=== PATIENT | female | born 1955 | race Caucasian/White ===

== ENCOUNTER 2024-08-17 13:52 | Inpatient (IN) | payer MEDICARE, OTHER, SELFPAY ==
[2024-08-17] VITALS (8 sets, daily range): BP systolic 146–189; BP diastolic 65–134; PULSE 77–124; RESP 16–20; TEMP 36.6–37.2; O2SAT 93–97; BMI 30.5; BMI 31.8
--- NOTE | 2024-08-17 14:14 | XR_ITS ---
WS: [id number] Exam: XR pelvis min 3V [id number] Date/Time of Exam: 08/17/2024 2:35 PM Reason For Exam: fall No pelvic fracture. The SI joints and hips are intact. Unremarkable soft tissues. XR/XR pelvis min 3V [id number] IMPRESSION: 1. No acute traumatic finding in the pelvis.
--- NOTE | 2024-08-17 14:22 | ECG_ITS ---
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
[2024-08-17] MEDS: sodium chloride 0.9% 1,000 ML 999 ML IV (14:48)
--- NOTE | 2024-08-17 15:22 | PC.PHAR ---
Pt unable to verify her medications. Phoned [facility] [phone] and Rowena Simmons for medication list with last fill dates and day supply. Pt states she has not taken any medications in 3 or 4 days.
[2024-08-17 15:29] LABS: Basophils # 0.1 10^3/uL (0.0-0.1); Basophils % 0.4 %; Eosinophils # 0.3 10^3/uL (0.0-0.8); Eosinophils % 1.8 %; Hematocrit 39.1 % (36-47); Lymphocytes # 1.3 10^3/uL (0.8-4.8); Lymphocytes % 8.5 %; Mean Corpuscular HGB Conc 32.2 g/dL (30-55); Mean Corpuscular Hemoglobin 29.1 pg (27-33); Mean Corpuscular Volume 90.3 fl (85-98); Mean Platelet Volume 11.9 fL (7.4-10.4); Monocytes # 1.3 10^3/uL (0.2-0.9); Monocytes % 9.1 %; Neutrophils # 11.61 10^3/uL (1.8-7.7); Neutrophils % 79.4 %; Nucleated Red Blood Cells % 0 %; Platelet Count 229 10^3/cmm (157-399); Red Blood Count 4.33 10^6/uL (3.85-5.65); Red Cell Distribution Width 12.8 % (12.1-15.1); White Blood Count 14.65 10^3/uL (3.29-11.43)
[2024-08-17 15:48] LABS: Alanine Aminotransferase 70 U/L (0-33); Albumin Level 3.6 g/dL (3.5-5.2); Alkaline Phosphatase 110 U/L (35-105); Anion Gap 15.6 (5-19); Aspartate Amino Transferase 77 U/L (0-32); Blood Urea Nitrogen 27 mg/dL (8-23); Calcium 9.5 mg/dL (8.5-10.5); Carbon Dioxide 24 mmol/L (22-29); Chloride 110 mmol/L (98-107); Creatinine Clr Calc Pharmacy 79.4844; Globulin 2.7 g/dL (1.3-4.6); Glomerular Filtration Rate 122.7 mL/min (90-130); Glucose 102 mg/dL (65-115); Osmolality Calculated 307 mOsm/kg (285-295); Potassium 3.6 mmol/L (3.5-5.1); Sodium 146 mmol/L (136-145); Total Bilirubin 0.8 mg/dL (0.15-1.2); Total Protein 6.3 g/dL (6.6-8.7)
[2024-08-17 15:49] LABS: Creatine Phosphokinase 811 U/L (26-192)
[2024-08-17 15:53] LABS: Bilirubin Urine Negative (Negative); Blood Urine Negative (Negative); Glucose Urine UA Negative (Normal); Ketones Urine 2+ (Negative); Leukocyte Esterase Urine Trace (Negative); Nitrate Urine Negative (Negative); Protein Urine 1+ (Negative); Urine Appearance Clear (CLEAR); Urine Color Dark Yellow (Yellow)
[2024-08-17 15:58] LABS: Add Urine Microscopic? YES; Bacteria Urine None Seen /hpf; Hyaline Casts Urine 1.21 /lpf; RBC Urine 0-2 /hpf (0-2); Squamous Epithelial Cell Urine 0-5 /hpf (0-5); WBC Urine 0-5 /hpf (0-5)
[2024-08-17 16:17] LABS: Add Urine Culture? No; Specific Gravity, Urine 1.033 (1.005-1.030)
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
--- NOTE | 2024-08-17 17:31 | CTR_ITS ---
PROCEDURE INFORMATION: Exam: CT Head Without Contrast Exam date and time: 08/17/2024 5:45 PM Age: 69 years old Clinical indication: Stroke-like symptoms; Altered mental status/memory loss TECHNIQUE: Imaging protocol: Computed tomography of the head without contrast. Radiation optimization: All CT scans at this facility use at least one of these dose optimization techniques: automated exposure control; mA and/or kV adjustment per patient size (includes targeted exams where dose is matched to clinical indication); or iterative reconstruction. Other technique: STROKE PROTOCOL was implemented. COMPARISON: CT angio headneck* [id number] 08/17/2024 5:45 PM RADIATION DOSE METRICS: Total DLP (mGy-cm): 1108.5 FINDINGS: Brain: No acute intracranial hemorrhage. No edema. No mass effect. There are small ill-defined hypodense areas in the bilateral periventricular white matter suggestive of chronic small vessel ischemic changes. Cerebral ventricles: No hydrocephalus. The ventricles are mildly prominent in size in keeping with brain atrophy. Paranasal sinuses: Visualized sinuses are unremarkable. No fluid levels. Mastoid air cells: No mastoid effusion. Bones: Unremarkable. No acute fracture. Soft tissues: Unremarkable. CT/CT head wo con* [id number] IMPRESSION: No CT evidence of acute intracranial hemorrhage, mass or acute infarction. ASSESSMENT: ASPECTS ([place] Stroke Program Early CT Score) is 10.
--- NOTE | 2024-08-17 17:31 | USR_ITS ---
PROCEDURE INFORMATION: Exam: US Duplex Artery or Vein of the Abdominal and/or Reproductive Organs, Limited Liver Exam date and time: 08/17/2024 9:52 PM Age: 69 years old Clinical indication: Condition or disease; Other: Transaminitis TECHNIQUE: Imaging protocol: Real-time duplex ultrasound scan of the arterial or venous flow with color Doppler flow and spectral waveform analysis with image documentation. Limited Duplex exam focused on the liver and portal venous system. Duplex exam was performed to evaluate for vascular conditions. COMPARISON: No relevant prior studies available. FINDINGS: Portal venous: The portal vein is patent with hepatopetal flow. Spectral waveform demonstrates normal respiratory phasicity. PROCEDURE INFORMATION: Exam: US Abdomen; Limited Exam date and time: 08/17/2024 9:52 PM Age: 69 years old Clinical indication: Condition or disease; Other: Transaminitis TECHNIQUE: Imaging protocol: Real time ultrasound of the abdomen with image documentation. Limited exam focused on the region of clinical interest. COMPARISON: No relevant prior studies available. FINDINGS: Liver: Diffuse hepatic steatosis. Gallbladder: Cholelithiasis. Gallbladder wall measures 2 mm. Positive sonographic Estevez's sign. Biliary ducts: Common bile duct measures 5 mm. Pancreas: Limited evaluation of the pancreas due to overlying bowel gas. Right kidney: The right kidney measures 10.8 cm. No hydronephrosis. Possible vascular mass in the mid right kidney measuring approximately 3.5 cm. US/US liver [id number] IMPRESSION: Unremarkable duplex of the portal vein. IMPRESSION: 1. Cholelithiasis with positive sonographic Estevez's sign, concerning for acute cholecystitis. 2. Possible right renal mass measuring 3.5 cm. Recommend correlation with nonemergent contrast-enhanced multiphase CT. 3. Diffuse hepatic steatosis.
--- NOTE | 2024-08-17 17:31 | CTR_ITS ---
PROCEDURE INFORMATION: Exam: CTA Head With Contrast, Arteriography Exam date and time: 08/17/2024 5:45 PM Age: 69 years old Clinical indication: Weakness; Additional info: Stroke TECHNIQUE: Imaging protocol: Computed tomographic angiography of the head with contrast. Exam focused on the arteries. 3D rendering (Not supervised by radiologist): MIP and/or 3D reconstructed images were created by the technologist. Radiation optimization: All CT scans at this facility use at least one of these dose optimization techniques: automated exposure control; mA and/or kV adjustment per patient size (includes targeted exams where dose is matched to clinical indication); or iterative reconstruction. Contrast material: OMNIPAQUE 350; Contrast volume: 100 ml; Contrast route: INTRAVENOUS (IV); COMPARISON: CT head wo con* [id number] 08/17/2024 5:45 PM RADIATION DOSE METRICS: Total DLP (mGy-cm): 432 FINDINGS: ANTERIOR CIRCULATION: Right internal carotid artery: Intracranial segment is patent with no significant stenosis. No aneurysm. Right middle cerebral artery: No occlusion or significant stenosis. No aneurysm. Right anterior cerebral artery: No occlusion or significant stenosis. No aneurysm. Left internal carotid artery: Intracranial segment is patent with no significant stenosis. No aneurysm. Left middle cerebral artery: No occlusion or significant stenosis. No aneurysm. Left anterior cerebral artery: No occlusion or significant stenosis. No aneurysm. POSTERIOR CIRCULATION: Right vertebral artery: No occlusion or significant stenosis. No aneurysm. Left vertebral artery: No occlusion or significant stenosis. No aneurysm. Basilar artery: No occlusion or significant stenosis. No aneurysm. The artery is of small caliber as expected with origin of bilateral posterior cerebral arteries. Right posterior cerebral artery: No occlusion or significant stenosis. No aneurysm. There is developmental variant of origin of the artery from the anterior circulation. Left posterior cerebral artery: No occlusion or significant stenosis. No aneurysm. There is developmental variant of origin of the artery from the anterior circulation. Brain: No definite mass, mass effect, or midline shift. Cerebral ventricles: No ventriculomegaly. Bones/joints: Unremarkable. No acute fracture. Soft tissues: Unremarkable. PROCEDURE INFORMATION: Exam: CTA Neck With Contrast Exam date and time: 08/17/2024 5:45 PM Age: 69 years old Clinical indication: Weakness; Additional info: Stroke TECHNIQUE: Imaging protocol: Computed tomographic angiography of the neck with contrast. Exam focused on the cervical segments of the vasculature. 3D rendering (Not supervised by radiologist): MIP and/or 3D reconstructed images were created by the technologist. Radiation optimization: All CT scans at this facility use at least one of these dose optimization techniques: automated exposure control; mA and/or kV adjustment per patient size (includes targeted exams where dose is matched to clinical indication); or iterative reconstruction. Contrast material: OMNIPAQUE 350; Contrast volume: 100 ml; Contrast route: INTRAVENOUS (IV); COMPARISON: CT head wo con* [id number] 08/17/2024 5:45 PM RADIATION DOSE METRICS: Total DLP (mGy-cm): 432 FINDINGS: Right common carotid artery: No significant stenosis. No dissection or occlusion. Right internal carotid artery: Extracranial segment is patent with no significant stenosis. No dissection or occlusion. Right external carotid artery: No occlusion or significant stenosis. Left common carotid artery: No significant stenosis. No dissection or occlusion. Left internal carotid artery: Extracranial segment is patent with no significant stenosis. No dissection or occlusion. Left external carotid artery: No occlusion or significant stenosis. Right vertebral artery: No significant stenosis. No dissection or occlusion. Left vertebral artery: Occluded at the origin with minor flow reconstituting at C5 level and subsequent occlusion in the upper neck. The flow at the craniocervical junction is probably supplied from the right vertebral artery. Soft tissues: No significant soft tissue swelling. Bones/joints: No acute fracture. CT/CT angio headneck* [id number] IMPRESSION: No large vessel stenosis or occlusion. IMPRESSION: No carotid stenosis. 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 REFERENCES: NASCET CRITERIA. The degree of stenosis in the cervical segment of the internal carotid artery is based on NASCET criteria. Normal is no stenosis. Mild is less than 50% stenosis. Moderate is 50-69% stenosis. Severe is 70% to 99% stenosis. Total occlusion is no detectable patent lumen.
[2024-08-17] MEDS: iohexol 350 mg/mL 500 mL Btl (per mL) IV (17:51)
[2024-08-17 18:23] LABS: Thyroid Stimulating Hormone 2.29 uIU/mL (0.27-4.20)
[2024-08-17 18:26] LABS: Alcohol Level < 10 mg/dL (0-10)
[2024-08-17] MEDS: cefTRIAXone 1,000 mg SDV 1000 MG IVP (18:28)
[2024-08-17] MEDS: enoxaparin 40 mg/0.4 mL Syringe SUBCUT (18:28)
[2024-08-17 18:44] LABS: Amphetamines Screen Urine Negative (Negative); Barbiturates Screen Urine Negative (Negative); Benzodiazepines Screen Urine Negative (Negative); Cocaine Screen Urine Negative (Negative); Opiate Screen Urine Negative (Negative); PCP Screen Urine Negative (Negative); THC Screen Urine Positive (Negative)
[2024-08-17 18:46] LABS: Ammonia 23 umol/L (11-51)
[2024-08-17] MEDS: sodium chloride 0.45% 1,000 ML 75 ML IV (18:57)
--- NOTE | 2024-08-17 19:05 | W.ED.FALL ---
HPI - Fall General: Chief Complaint: Fall Stated Complaint: fall Time Seen by Provider: 08/17/24 13:52 History of Present Illness: This patient is a 69-year-old white female who presents to the emergency department for evaluation after a fall. The history obtained is suspect. Patient does seem to be somewhat confused. She was brought in by EMS and furthermore we do not have any medical history on her in the computer since she has not been seen here before. Patient states that she was diagnosed with either spinal stenosis or spondylitis of the spine on June 27 of this year. Since then she has developed weakness in both legs along with frequent falling. She states she was trying to get into the shower 5 days ago and developed severe lower back pain and had a lower herself to the ground. She did not actually fall. She states she was too weak to get up and she laid there since then. She states she is scheduled for surgery on her spine on September [address] Rivera in [place]. Related Data Home Medications ?Medication ?Instructions ?Recorded ?Confirmed acetaminophen 300 mg-codeine 30 mg 1 tab PO Q8H PRN Pain 08/17/24 08/17/24 tablet cyclobenzaprine 10 mg tablet 10 mg PO BID PRN Spasms 08/17/24 08/17/24 fluoxetine 20 mg capsule (Prozac) 20 mg PO DAILY 08/17/24 08/17/24 hydrochlorothiazide 25 mg tablet 25 mg PO QAM 08/17/24 08/17/24 levothyroxine 50 mcg tablet 50 mcg PO QAM 08/17/24 08/17/24 metoprolol succinate 25 mg 25 mg PO DAILY 08/17/24 08/17/24 tablet,extended release 24 hr rosuvastatin 20 mg tablet 20 mg PO DAILY 08/17/24 08/17/24 triamcinolone acetonide 0.1 % 1 applic topical BID PRN Skin 08/17/24 08/17/24 topical cream Irritation Allergies Allergy/AdvReac Type Severity Reaction Status Date / Time levofloxacin (From Levaquin) Allergy Unknown Verified 08/17/24 14:07 morphine Allergy Unknown Verified 08/17/24 14:07 Review of Systems General: Reports: 10 or more systems reviewed and unremarkable except in HPI and below Musc: Reports: back pain Physical Exam Narrative: EXAM NARRATIVE: Patient was covered in the urine and some feces. Const: COMMON NORMALS: no acute distress, patient oriented x3 and no limitations GENERAL APPEARANCE: cooperative HENMT: COMMON NORMALS: normocephalic, atraumatic, Normal nasal mucous membranes and turbinates present, moist oral mucous membranes and oropharynx normal HEAD & SCALP: normal to inspection, normocephalic and atraumatic FACE & SINUS: normal facial exam NOSE: Normal nasal mucous membranes and turbinates present Eye: COMMON NORMALS: Equal, round and reactive pupils present, EOMs intact bilaterally and conjunctivae normal GENERAL EYE: appearance normal, both eyes and all related structures CONJUNCTIVA: Yes conjunctivae normal PUPIL: Yes Equal, round and reactive pupils present Neck/C-Spine: COMMON NORMALS: supple and no JVD Chest: COMMONS NORMALS: normal inspection of the chest Resp: COMMON NORMALS: normal respiratory effort and clear to auscultation bilaterally AUSCULTATION: clear to auscultation bilaterally Cardio: COMMON NORMALS: no JVD, regular rate, regular rhythm, No gallops present (Cardio), No murmurs present (Cardio) and No rub (Cardio) RATE: regular rate RHYTHM: regular rhythm GI: COMMON NORMALS: Normal to inspection, nondistended, normoactive bowel sounds present, Soft to palpation and non-tender AUSCULTATION: Yes normoactive bowel sounds PALPATION: Yes Soft to palpation Back/Pelvis: GENERAL BACK: Yes tenderness Extremity: COMMON NORMALS: normal to inspection Neuro: COMMON NORMALS: patient oriented x3 and CN's II-XII intact bilaterally Psych: COMMON NORMALS: mental status grossly normal, Normal thought process present and cooperative THOUGHT PROCESS: Normal thought process present Skin: COMMON NORMALS: no rashes or lesions noted, turgor normal and no jaundice GENERAL SKIN EXAM: no rashes or lesions noted and turgor normal Course Vital Signs: Vital signs: Vital Signs Temperature 98.1 F 08/17/24 13:54 Pulse Rate 94 08/17/24 18:30 Respiratory Rate 20 H 08/17/24 18:30 Blood Pressure 166/80 08/17/24 18:30 Pulse Oximetry 97 08/17/24 18:30 Oxygen Delivery Me thod Room Air 08/17/24 18:30 MDM - Fall Medical Decision Making EKG revealed normal sinus rhythm with no ST segment abnormalities. X-rays of the pelvis were read by the radiologist as normal. CBC revealed a white blood cell count of 14.7. CMP revealed a sodium of 146, BUN 27 creatinine 0.5. Urinalysis reveals 2+ ketones. Total CK was 811. I discussed this case with Dr. Bonilla, hospitalist. She did come down and evaluated the patient. She had added head CT as well as CTA of the head and neck to rule out possible CVA due to the patient's confusion. Those tests were read by the radiologist as normal. Urine drug screen was positive for THC. Lactic acid 1.0. TSH 2.29. Ammonia level was 23. Dr. Bonilla did admit the patient. Patient will be transferred to the floor shortly. She is stable. Lab Data 08/17/24 15:10 08/17/24 15:10 Radiology Impressions Pelvis X-Ray 08/17/24 14:14 IMPRESSION: 1. No acute traumatic finding in the pelvis. Head CT 08/17/24 17:31 IMPRESSION: No CT evidence of acute intracranial hemorrhage, mass or acute infarction. ASSESSMENT: ASPECTS ([place] Stroke Program Early CT Score) is 10. ADDENDUM: 08/17/24 1194 THIS REPORT CONTAINS FINDINGS THAT MAY BE CRITICAL TO PATIENT CARE. The findings were verbally communicated via telephone conference with Dr. Rodriguez at 6:54 PM CDT on 08/17/2024. The findings were acknowledged and understood. Head/Neck CTA 08/17/24 17:31 IMPRESSION: No large vessel stenosis or occlusion. IMPRESSION: No carotid stenosis. 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 REFERENCES: NASCET CRITERIA. The degree of stenosis in the cervical segment of the internal carotid artery is based on NASCET criteria. Normal is no stenosis. Mild is less than 50% stenosis. Moderate is 50-69% stenosis. Severe is 70% to 99% stenosis. Total occlusion is no detectable patent lumen. Laboratory Results WBC 14.65 10^3/uL (3.29-11.43) H 08/17/24 15:10 RBC 4.33 10^6/uL (3.85-5.65) 08/17/24 15:10 Hgb 12.60 g/dL (11.27-16.99) 08/17/24 15:10 Hct 39.1 % (36-47) 08/17/24 15:10 MCV 90.3 fl (85-98) 08/17/24 15:10 MCH 29.1 pg (27-33) 08/17/24 15:10 MCHC 32.2 g/dL (30-55) 08/17/24 15:10 RDW 12.8 % (12.1-15.1) 08/17/24 15:10 Plt Count 229 10^3/cmm (157-399) 08/17/24 15:10 MPV 11.9 fL (7.4-10.4) H 08/17/24 15:10 Neut % (Auto) 79.4 % 08/17/24 15:10 Lymph % (Auto) 8.5 % 08/17/24 15:10 [place] % (Auto) 9.1 % 08/17/24 15:10 Eos % (Auto) 1.8 % 08/17/24 15:10 Baso % (Auto) 0.4 % 08/17/24 15:10 Neut # (Auto) 11.61 10^3/uL (1.8-7.7) H 08/17/24 15:10 Lymph # (Auto) 1.3 10^3/uL (0.8-4.8) 08/17/24 15:10 [place] # (Auto) 1.3 10^3/uL (0.2-0.9) H 08/17/24 15:10 Eos # (Auto) 0.3 10^3/uL (0.0-0.8) 08/17/24 15:10 Baso # (Auto) 0.1 10^3/uL (0.0-0.1) 08/17/24 15:10 Nucleated RBC % (auto) 0 % 08/17/24 15:10 Nucleated RBCs # 0.0 /100WBC 08/17/24 15:10 Sodium 146 mmol/L (136-145) H 08/17/24 15:10 Potassium 3.6 mmol/L (3.5-5.1) 08/17/24 15:10 Chloride 110 mmol/L (98-107) H 08/17/24 15:10 Carbon Dioxide 24 mmol/L (22-29) 08/17/24 15:10 Anion Gap 15.6 (5-19) 08/17/24 15:10 BUN 27 mg/dL (8-23) H 08/17/24 15:10 Creatinine 0.5 mg/dL (0.5-0.9) 08/17/24 15:10 GFR Calculation 122.7 mL/min (90-130) 08/17/24 15:10 Glucose 102 mg/dL (65-115) 08/17/24 15:10 Calculated Osmolality 307 mOsm/kg (285-295) H 08/17/24 15:10 Lactic Acid 1.0 mmol/L (0.5-2.2) 08/17/24 18:07 Calcium 9.5 mg/dL (8.5-10.5) 08/17/24 15:10 Total Bilirubin 0.8 mg/dL (0.15-1.2) 08/17/24 15:10 AST 77 U/L (0-32) H 08/17/24 15:10 ALT 70 U/L (0-33) H 08/17/24 15:10 Alkaline Phosphatase 110 U/L (35-105) H 08/17/24 15:10 Ammonia 23 umol/L (11-51) 08/17/24 18:25 Creatine Kinase 811 U/L (26-192) H* 08/17/24 15:10 Total Protein 6.3 g/dL (6.6-8.7) L 08/17/24 15:10 Albumin 3.6 g/dL (3.5-5.2) 08/17/24 15:10 Globulin 2.7 g/dL (1.3-4.6) 08/17/24 15:10 TSH 2.29 uIU/mL (0.27-4.20) 08/17/24 15:10 Urine Color Dark yellow (Yellow) A 08/17/24 15:46 Urine Appearance Clear (CLEAR) 08/17/24 15:46 Urine pH 6.0 (5-7) 08/17/24 15:46 Ur Specific [place] 1.033 (1.005-1.030) H 08/17/24 15:46 Urine Protein 1+ (Negative) A 08/17/24 15:46 Urine Glucose (UA) Negative (Normal) 08/17/24 15:46 Urine Ketones 2+ (Negative) H 08/17/24 15:46 Urine Blood Negative (Negative) 08/17/24 15:46 Urine Nitrate Negative (Negative) 08/17/24 15:46 Urine Bilirubin Negative (Negative) 08/17/24 15:46 Urine Urobilinogen 1.0 mg/dL (Negative) 08/17/24 15:46 Ur Leukocyte Esterase Trace (Negative) A 08/17/24 15:46 Urine RBC 0-2 /hpf (0-2) 08/17/24 15:46 Urine WBC 0-5 /hpf (0-5) 08/17/24 15:46 Ur Squamous Epith Cells 0-5 /hpf (0-5) 08/17/24 15:46 Amorphous Sediment Not Reportable 08/17/24 15:46 Urine Bacteria None seen /hpf (NONE) 08/17/24 15:46 Hyaline Casts 1.21 /lpf 08/17/24 15:46 Urine Opiates Screen Negative ng/mL (Negative) 08/17/24 15:40 Ur Barbiturates Screen Negative ng/mL (Negative) 08/17/24 15:40 Ur Phencyclidine Scrn Negative ng/mL (Negative) 08/17/24 15:40 Ur Amphetamines Screen Negative ng/mL (Negative) 08/17/24 15:40 U Benzodiazepines Scrn Negative ng/mL (Negative) 08/17/24 15:40 Urine Cocaine Screen Negative ng/mL (Negative) 08/17/24 15:40 U Marijuana (THC) Screen Positive ng/mL (Negative) H 08/17/24 15:40 Ethyl Alcohol < 10 mg/dL (0-10) 08/17/24 15:10 All radiology interpretation(s) finalized by discharge Discharge Plan Discharge Admit Provider: Milana Bonilla Condition: Stable Coding Level of Care Code ED Traffic Control Signaler for Juana Edwards
[2024-08-17 21:31] LABS: Hepatitis A Antibody IgM Non-Reactive (Nonreactive); Hepatitis B Core AB, Total Non-Reactive (Nonreactive); Hepatitis B Surface AB 40.7 (11.5-1000); Hepatitis B Surface Antigen Non-Reactive (Nonreactive); Hepatitis C Virus Antibody Non-Reactive (Nonreactive)
[2024-08-17] MEDS: atorvastatin 40 mg Tablet PO (22:39)
--- NOTE | 2024-08-18 01:24 | PC.NURSE ---
hospitalist dr melissa ordered patient micatin topical cream, the med is a formulary medication and is unable to be given until pharmacy is open at 0600.
--- NOTE | 2024-08-18 01:31 | PC.NURSE ---
patient up to floor at 2000 from ER. patient was found at her home in the floor and had been there for atleast 5 days, patient was covered in feces, urine, has multiple bug bites on the front of her body, has scabs on both knees and elbows and on her right foot. patient has excoriation under the folds of her abdomen, under her breast bilateral, in the folds on her back. patient came to the floor with a Ramirez catheter, and daughter is at bedside. patient is alert and oriented but says she is seeing bugs crawling on the [place]. this nurse contacted hospitalist Dr melissa and she stated that we need to watch it and if it gets any worse to contact her again. patient has normal saline at 75ml/hr, iv line dry and intact. this nurse turn on the bed alarm due to patient being a fall risk. will continue to monitor patients visual disturbances and assess for increased hallucinations.
[2024-08-18 04:00] VITALS: BP 152/79; PULSE 91; RESP 20; TEMP 36.3; O2SAT 90
[2024-08-18] MEDS: levothyroxine 50 mcg Tablet PO (05:25)
[2024-08-18 05:57] LABS: Basophils % 0.3 %; Eosinophils # 0.6 10^3/uL (0.0-0.8); Eosinophils % 4.8 %; Hematocrit 37.7 % (36-47); Lymphocytes # 1.5 10^3/uL (0.8-4.8); Lymphocytes % 12.6 %; Mean Corpuscular HGB Conc 32.4 g/dL (30-55); Mean Corpuscular Hemoglobin 29.4 pg (27-33); Mean Corpuscular Volume 90.8 fl (85-98); Mean Platelet Volume 11.8 fL (7.4-10.4); Monocytes # 1.1 10^3/uL (0.2-0.9); Monocytes % 8.7 %; Neutrophils # 8.77 10^3/uL (1.8-7.7); Neutrophils % 72.8 %; Nucleated Red Blood Cells % 0 %; Platelet Count 213 10^3/cmm (157-399); Red Blood Count 4.15 10^6/uL (3.85-5.65); Red Cell Distribution Width 12.9 % (12.1-15.1); White Blood Count 12.06 10^3/uL (3.29-11.43)
[2024-08-18 06:23] LABS: Alanine Aminotransferase 60 U/L (0-33); Albumin Level 3.3 g/dL (3.5-5.2); Alkaline Phosphatase 120 U/L (35-105); Aspartate Amino Transferase 55 U/L (0-32); Blood Urea Nitrogen 19 mg/dL (8-23); Calcium 9.1 mg/dL (8.5-10.5); Carbon Dioxide 23 mmol/L (22-29); Chloride 107 mmol/L (98-107); Creatinine Clr Calc Pharmacy 81.7976; Globulin 2.6 g/dL (1.3-4.6); Glomerular Filtration Rate 158.7 mL/min (90-130); Glucose 96 mg/dL (65-115); Magnesium 2.1 mg/dL (1.7-2.3); Osmolality Calculated 298 mOsm/kg (285-295); Sodium 143 mmol/L (136-145); Total Bilirubin 0.6 mg/dL (0.15-1.2); Total Protein 5.9 g/dL (6.6-8.7)
[2024-08-18 07:22] VITALS: BP 147/75; PULSE 82; RESP 16; TEMP 36.7; O2SAT 93
[2024-08-18 08:00] VITALS: BP 147/75; PULSE 82; RESP 16; TEMP 36.7
[2024-08-18] MEDS: metoprolol succinate ER (24 HR) 25 mg Tablet PO (08:19)
[2024-08-18] MEDS: sodium chloride 0.45% 1,000 ML 75 ML IV ×2 (08:23→20:01)
--- NOTE | 2024-08-18 10:06 | MRR_ITS ---
PROCEDURE INFORMATION: Exam: MR Lumbar Spine Without and With Contrast Exam date and time: 08/18/2024 12:55 PM Age: 69 years old Clinical indication: Severe low back pain weakness in extremities , concern for cauda equina; Additional info: Assess for cauda equina, nerve compression, known lumbar stenosis, uanble to walk x 5 days, assess for TECHNIQUE: Imaging protocol: Magnetic resonance imaging of the lumbar spine without and with contrast. Contrast material: MULTI TEVIN; Contrast volume: 20 ml; Contrast route: INTRAVENOUS (IV); COMPARISON: CR XR pelvis min 3V [id number] 08/17/2024 2:28 PM FINDINGS: Bones/joints: Lumbar curvature is unremarkable. There is slight spondylolisthesis at L3-L4 and L4-L5 otherwise alignment is unremarkable. There is an acute compression fracture involving the superior endplate of L4 with approximately 30% loss of vertebral body height and slight retropulsion of the superior margin. Remainder of the vertebral bodies are intact. Spinal cord: Normal termination of the conus medullaris. Nerve roots of the cauda equina are unremarkable. T12-L1: Degenerative disc and endplate changes with annular disc bulge and endplate osteophytic lipping indenting the anterior thecal sac. No significant spinal stenosis. L1-L2: No significant disc bulge or herniation. No severe spinal canal stenosis. No significant neural foraminal narrowing. L2-L3: No significant disc bulge or herniation. No severe spinal canal stenosis. No significant neural foraminal narrowing. L3-L4: Diffuse annular disc bulge with ligamentum flavum thickening and facet arthrosis superimposed on mild retropulsion of the superior endplate resulting in severe stenosis of the central canal with constriction of the thecal sac. There is mild acquired foraminal stenosis at this level. L4-L5: Diffuse annular disc bulge with ligamentum flavum thickening facet arthrosis resulting in severe stenosis of the central canal with constriction of the thecal sac.. There is mild acquired foraminal stenosis bilaterally. L5-S1: Posterior degenerative disc space narrowing with mild annular disc bulge indenting the anterior thecal sac imparting borderline stenosis of the central canal and mild acquired foraminal stenosis bilaterally. Soft tissues: Unremarkable. MR/MR lumbar spine wo/w con [id number] IMPRESSION: 1. Acute compression fracture L4 with mild retropulsion and approximately 30% loss of vertebral body height. 2. Severe degenerative spinal stenosis L3-L4 and L4-L5 with constriction of the thecal sac.
--- NOTE | 2024-08-18 11:12 | PC.CHAP ---
Pastoral Care Encounter/Spiritual Assessment Type of Contact [] Declined assembler latches and springs visit [] Patient/Family/Request visit [] Outpatient visit [] Follow-up visit [] Physician referral [] Code/Alert [x] Routine visit [] Staff referral [] Actively dying [] Patient sleeping [] Family support [] [] Out of room [] Palliative care [] [] Receiving care in room [] Pre-surgical visit [] Trauma [] Long length of stay [] ICU visit [] Other: Relational/Emotional Strength [x] Patient feels connected with others/family/visitors/staff [] Distress [] Loneliness/isolation [] Abandonment Spirituality of Patient [x] Person of [place] [] Attends Evangelical of their [place] [x] Believes in Prayer [] Reads Bible or Holiness materials [] There are Spiritual issues to be addressed [employer] Interventions [x] Prayer [x] Active listening [] Non-anxious presence [x] Spiritual/emotional support [] Crisis/trauma care [] Spiritual counseling [] Bereavement support [] Provided bereavement packet [] Provided Bible/devotional materials [] Provided toy/stuffed animal, coloring book to patient or family member [] Provided Communion [] Anointing/[facility] [] Salvation [x] Completed spiritual assessment [] Other: Impact on Illness or Injury [] Angry [] Fearful [] Anxious [] Often cries [] Exhaustion [] Unable to work [] Unable to attend yarsanism [] Unable to walk/stand [] Unable to read [] Unable to drive [] Unable to eat/drink [] Unable to sleep [] Unable to be with family [] Patient intubated [] Other: Summary Time spent with patient 5 min
[2024-08-18 12:01] VITALS: BP 131/85; PULSE 111; RESP 16; TEMP 36.7; O2SAT 92
[2024-08-18] MEDS: piperacillin-tazobactam 3.375 GM in sodium chloride 0.9% (plus) 50 ML IV ×2 (12:28→18:22)
[2024-08-18] MEDS: gadobenate dimeglumine 20 mL vial IV (13:27)
--- NOTE | 2024-08-18 14:03 | PC.NURSE ---
notified Melissa in [facility] to bring Ensure Pluse per Dr. Bonilla's Message to Nurse in orders. Patient is to have ensure plus tonight to prepare patient for HIDA in am. Dietary will bring them up with dinner.
[2024-08-18] MEDS: lidocaine 1% 5 ML in potassium chloride premix 100 ML 26.25 ML IV (14:24)
--- NOTE | 2024-08-18 15:23 | PM.CONSULT ---
Providers/Reason For Consult Consulting Physician/Specialty*: Catherine Parks DO/general surgeon Reason for Consult*: Question of acute cholecystitis due to ultrasound findings Requesting Physician: Milana Bonilla MD Attending Physician: Milana Bonilla MD Primary Care Provider: Sunshine Dooley APN History of Present Illness History of Present Illness Lynne Garcia is a 69 year old female with recent fall and altered mental status. Her initial complaints are bilateral upper extremity pain, left hip pain, and flushing. I was consulted for right upper quadrant focused ultrasound findings of cholelithiasis, with a questionable positive Estevez sign and mildly elevated LFTs, within normal bilirubin. She has baseline hypertension and hyperthyroid. Upon questioning this afternoon, the patient had an episode of acute diverticulitis in 2011, at which time she was given IV antibiotics in the emergency department and discharged on oral antibiotics. Her last colonoscopy was approximately 30 years ago. She has a family history of colon cancer. She complains of left upper quadrant, left flank, and left lower quadrant abdominal pain that has been going on for about 5 days. She has not eaten much in the last few weeks, although her memory is limited at this time. She does not have abdominal pain after eating fatty meals. She does not have nausea or vomiting. She does have an unexplained leukocytosis. Although, she reportedly takes steroids intermittently as she thinks that she needs them for certain ailments. Review of Systems Const: Reports: body aches, change in appetite and other (confirms weakness); Denies: fever(s) or chills Card: Reports: chest pain and palpitations GI: Reports: abdominal pain; Denies: nausea, vomiting, constipation, bloating, change in bowel habits or hematochezia : Reports: flank pain Musc: Reports: extremity pain and muscle weakness Medications/Allergies Home Medications ?Medication ?Instructions ?Recorded ?Confirmed ?Last Taken ?Type acetaminophen 300 mg-codeine 30 mg 1 tab PO Q8H PRN Pain 08/17/24 08/17/24 Unknown History tablet cyclobenzaprine 10 mg tablet 10 mg PO BID PRN Spasms 08/17/24 08/17/24 Unknown History fluoxetine 20 mg capsule (Prozac) 20 mg PO DAILY 08/17/24 08/17/24 Unknown History hydrochlorothiazide 25 mg tablet 25 mg PO QAM 08/17/24 08/17/24 Unknown History levothyroxine 50 mcg tablet 50 mcg PO QAM 08/17/24 08/17/24 Unknown History metoprolol succinate 25 mg 25 mg PO DAILY 08/17/24 08/17/24 Unknown History tablet,extended release 24 hr rosuvastatin 20 mg tablet 20 mg PO DAILY 08/17/24 08/17/24 Unknown History triamcinolone acetonide 0.1 % 1 applic topical BID PRN Skin 08/17/24 08/17/24 Unknown History topical cream Irritation Allergies Allergy/AdvReac Type Severity Reaction Status Date / Time levofloxacin (From [facility]) Allergy Unknown Verified 08/17/24 14:07 lisinopril Allergy ALGY-Swell Verified 08/17/24 21:14 Lip/Tongue/Throat morphine Allergy Unknown Verified 08/17/24 14:07 Current Medications Generic Name Dose Route Start Last Admin Trade Name Freq PRN Reason Stop Dose Admin Atorvastatin Calcium 40 mg 08/17/24 21:00 08/17/24 22:39 Atorvastatin 40 Mg Tablet PO 40 mg BEDTIME HUNTER Administration Enoxaparin Sodium 40 mg 08/17/24 17:45 08/17/24 18:28 Enoxaparin 40 Mg/0.4 Ml Syringe SUBCUT 40 mg Q24H HUNTER Administration Sodium Chloride 1,000 mls @ 75 mls/hr 08/17/24 17:45 08/18/24 08:23 Sodium Chloride 0.45% IV 75 mls/hr .[id number] HUNTER Administration Piperacillin Sod/Tazobactam 50 mls @ 12.5 mls/hr 08/18/24 11:15 08/18/24 12:28 Sod 3.375 gm/ Sodium Chloride IV 12.5 mls/hr Q8H HUNTER Administration Protocol Lidocaine HCl 5 ml/ Potassium 105 mls @ 26.25 mls/hr 08/18/24 12:27 08/18/24 14:24 Chloride IV 08/18/24 16:26 26.25 mls/hr ONCE ONE Administration Levothyroxine Sodium 50 mcg 08/18/24 06:00 08/18/24 05:25 Levothyroxine 50 Mcg Tablet PO 50 mcg QAM HUNTER Administration Metoprolol Succinate 25 mg 08/18/24 09:00 08/18/24 08:19 Metoprolol Succinate Er (24 Hr) 25 Mg Tablet PO 25 mg DAILY HUNTER Administration Vitals/I&O/Wt Last Vital Signs Temp 98.0 F 08/18/24 12:01 Pulse 111 H 08/18/24 12:01 Resp 16 08/18/24 12:01 BP 131/85 08/18/24 12:01 Pulse Ox 92 08/18/24 12:01 O2 Del Method Room Air 08/18/24 12:01 08/18/24 08/18/24 08/18/24 06:59 14:59 22:59 Intake Total 1450 / 1450 Output Total 450 / 450 Balance -450 / 550 1450 / 1450 Weight last 48 hrs Weight 213 lb Weight 209 lb 4.8 oz Weight 201 lb Physical Exam Const: COMMON NORMALS: no acute distress and patient oriented x3 GENERAL APPEARANCE: comfortable HENMT: COMMON NORMALS: normocephalic and atraumatic HEAD & SCALP: normocephalic and atraumatic Chest: COMMONS NORMALS: normal inspection of the chest Resp: COMMON NORMALS: normal respiratory effort and No use of accessory muscles GI: COMMON NORMALS: Normal to inspection, nondistended, normoactive bowel sounds present OTHER: No rebound tenderness or rigidity. Focally tender to palpation in the left upper quadrant, left lower quadrant, and suprapubic region. Equivocally tender to palpation in the right upper quadrant of the abdomen Extremity: NARRATIVE EXTREMITY EXAM: Erythema/flushing of the face and bilateral upper extremities. Erythema/irritation in the abdominal folds. Neuro: COMMON NORMALS: patient oriented x3 Data 08/18/24 05:31 08/18/24 05:31 Micro: Microbiology 08/17/24 18:13 Blood Culture - Preliminary Blood SPECIMEN COLLECTED 08/17/24 18:07 Blood Culture - Preliminary Blood SPECIMEN COLLECTED US: My impression: FINDINGS: Liver: Diffuse hepatic steatosis. Gallbladder: Cholelithiasis. Gallbladder wall measures 2 mm. Positive sonographic Estevez's sign. Biliary ducts: Common bile duct measures 5 mm. Pancreas: Limited evaluation of the pancreas due to overlying bowel gas. Right kidney: The right kidney measures 10.8 cm. No hydronephrosis. Possible vascular mass in the mid right kidney measuring approximately 3.5 cm. IMPRESSION: Unremarkable duplex of the portal vein. IMPRESSION: 1. Cholelithiasis with positive sonographic Estevez's sign, concerning for acute cholecystitis. 2. Possible right renal mass measuring 3.5 cm. Recommend correlation with nonemergent contrast-enhanced multiphase CT. 3. Diffuse hepatic steatosis. A&P Assessment and plan (1) Abdominal pain of unknown cause: - I reviewed the right upper quadrant ultrasound, there is in fact cholelithiasis with some of the stones measuring up to approximately 1 cm in diameter. The gallbladder wall is not thickened at 2 mm, and there is no pericholecystic fluid. In the absence of an explanation for the leukocytosis and the questionable positive ultrasonic Estevez's sign, I recommend getting a HIDA scan to rule out acute cholecystitis. --The patient does have altered mental status, but the bilirubin is normal and there are no other signs of a possible cholangitis, the common bile duct is not dilated per ultrasound. There are other possible explanations for altered mental status in this patient. It would however be prudent to trend the bilirubin and liver enzymes, as well as a daily CBC. -- The patient has a history of an apparently uncomplicated acute diverticulitis. Physical exam findings of left-sided tenderness to palpation and reported left-sided abdominal pain are consistent with possible acute diverticulitis. Recommend CT abdomen and pelvis with IV contrast. May start IV antibiotics empirically. -- I will follow this patient closely and continue to see this patient on a daily basis. The patient and her daughter were involved in the decision-making process. --I also discussed the patient and plan of care with Dr. Bonilla. (2) Cholelithiasis NOS: (3) History of diverticulitis: (4) Altered mental status: (5) Leukocytosis (leucocytosis): (6) Abnormal LFTs: Plan See above under assessment #1. PDMP PDMP Reviewed: Not Reviewed Coding Level of Care Code Acute Code for [facility] Diagnoses Abdominal pain of unknown cause R10.9 Cholelithiasis NOS K80.20 History of diverticulitis Z87.19 Altered mental status R41.82 Leukocytosis (leucocytosis) D72.829 Abnormal LFTs R79.89
--- NOTE | 2024-08-18 15:54 | CTR_ITS ---
PROCEDURE INFORMATION: Exam: CT Abdomen And Pelvis With Contrast Exam date and time: 08/19/2024 1:49 AM Age: 69 years old Clinical indication: Abdominal pain; Localized; Left lower quadrant (llq); Additional info: Assess for diverticulitis, assess for diverticulitis TECHNIQUE: Imaging protocol: Computed tomography of the abdomen and pelvis with contrast. Radiation optimization: All CT scans at this facility use at least one of these dose optimization techniques: automated exposure control; mA and/or kV adjustment per patient size (includes targeted exams where dose is matched to clinical indication); or iterative reconstruction. Contrast material: OMNI 350; Contrast volume: 100 ml; Contrast route: INTRAVENOUS (IV); COMPARISON: CR XR pelvis min 3V [id number] 08/17/2024 2:28 PM RADIATION DOSE METRICS: Total DLP (mGy-cm): 989.5 FINDINGS: Lungs: Minimal bibasilar discoid atelectasis. Pleural spaces: Small bilateral pleural effusions. Liver: Normal. No mass. Gallbladder and biliary ducts: Multiple gallstones without gallbladder wall thickening or pericholecystic fluid. Pancreas: Normal. No ductal dilation. Spleen: Normal. No splenomegaly. Adrenal glands: Normal. No mass. Kidneys and ureters: Normal. No hydronephrosis. Stomach and bowel: Scattered colon diverticula. Mild fecal stasis. No signs of bowel obstruction. There is a moderate amount of stool within the rectum with surrounding inflammation. Appendix: No evidence of appendicitis. Intraperitoneal space: Unremarkable. No free air. No significant fluid collection. Vasculature: Mild scattered calcific plaque involves the abdominal aorta. The aorta is free of aneurysm and dissection. Lymph nodes: Unremarkable. No enlarged lymph nodes. Urinary bladder: The urinary bladder is decompressed with a Ramirez catheter. Reproductive: The uterus is surgically absent. Bones/joints: The bone density is decreased. Chronic T11, L1 and L4 compression fractures. Soft tissues: Unremarkable. CT/CT abdomen pelvis w con* [id number] IMPRESSION: 1. Stercoral proctitis. Mild fecal stasis. 2. Cholelithiasis. 3. Additional chronic findings as detailed.
--- NOTE | 2024-08-18 16:01 | P.PN_ITS ---
Subjective 2 Subjective: Patient's daughter is currently at bedside and provides some additional history today.Patient was last noted to be normal on Thursday. At baseline she has no neurological deficits, is never confused. 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 She is remembering remote events and is confused as to the timeline of these. Compared to yesterday the patient is less confused, her speech continues to be slightly slurred, she laughs inappropriately during the interview [employer]. She complains of generalized muscle ache. States that currently it is her hands that bother her the most. Currently denies any abdominal pain nausea or vomiting. She does not have much of an appetite. Additionally patient reports a remote history of histoplasmosis. Though she does not recall the exact timeline but does tell me that she was diagnosed with histoplasmosis as a child when she was in high school, she was thereafter tested based on a skin prick test for histoplasmosis and TB. She was told she does not have TB. She is under the impression that if she takes prednisone she could avoid a flare of her histoplasmosis. Patient does report taking anywhere between 10 to 30 mg of oral prednisone frequently for bony pains, episodes of sinusitis and early signs of bronchitis. She states that she last used steroid 30 mg about 2 months ago. Unable to tell me a clear frequency of steroid use at this time. Medications: Reviewed: Yes Vitals/I&O/Wt Last Vital Signs Temp 98.0 F 08/18/24 12:01 Pulse 111 H 08/18/24 12:01 Resp 16 08/18/24 12:01 BP 131/85 08/18/24 12:01 Pulse Ox 92 08/18/24 12:01 O2 Del Method Room Air 08/18/24 12:01 08/18/24 08/18/24 08/18/24 06:59 14:59 22:59 Intake Total 1450 / 1450 Output Total 450 / 450 Balance -450 / 550 1450 / 1450 Weight last 48 hrs Weight 96.615 kg Weight 94.937 kg Weight 91.172 kg Physical Exam 2 Narrative: General: No acute distress, AO x2 HEENT: PERRLA, pupils bilaterally equal and reactive, pallors not present Chest: Normal vesicular breath sounds, no added sounds, equal good air entry bilaterally CVS: S1-S2 regular, no murmurs, no tachycardia, no gallops, no rubs Abdomen: Soft, nontender, no organomegaly, bowel sounds present Neuro: Bilateral lower extremities are weak, patient unable to raise bilateral lower extremity beyond 30 degree. Lifting her arms bilaterally causes pain therefore movement is restricted beyond 30 degrees. Extremities. Tenderness to palpation over bilateral arms on the lateral aspects. No lymphadenopathy encountered in the axillary folds. Data 08/18/24 05:31 08/18/24 05:31 Micro: Microbiology 08/17/24 18:13 Blood Culture - Preliminary Blood SPECIMEN COLLECTED 08/17/24 18:07 Blood Culture - Preliminary Blood SPECIMEN COLLECTED A&P Assessment and plan (1) Altered mental status: (2) Right sided weakness: (3) Rhabdomyolysis: (4) Dehydration: (5) Hypernatremia: (6) Lumbar stenosis: (7) L4 vertebral fracture: Plan 69-year-old lady with very limited history available at this time presenting to the hospital after being down estimated about 5 days when she was last seen by family members. Patient is only able to remember that she was trying to go to the bathroom when she fell to the floor and has been unable to get up. Does not recall the events since then. Labs show evidence of leukocytosis, rhabdomyolysis with elevated CK, hypernatremia and transaminitis. Differentials at this time are broad and include underlying infection, lumbar stenosis with nerve compression/cauda equina resulting in acute lower extremity swelling, though this would not explain her current confusion. Differentials also include stroke given slightly worse weakness on the right side compared to the left, slurred speech and possible aphasia. Check urine drug screen, serum alcohol level, UA, urine culture and blood culture. Stat CT head and CTA of the head and neck ordered to evaluate for stroke. Patient is not within the tPA window. Lumbar spine MRI if CT head and CTA returned negative for stroke. Chest x-ray without any consolidation Pelvic x-ray negative for any acute fractures Ordered ultrasound of the liver given deranged LFTs, obtain hepatitis serology. Check TSH and ammonia levels Check tick panel given diffuse rash, uncertain cause at this time, may be sunburn, however this is less likely as patient was found to indoor For hyponatremia and rhabdomyolysis continue IV fluids as started in the ER, however change normal saline to half-normal saline given hypernatremia. Start ceftriaxone 1 g IV every 24 hours while undergoing infectious evaluation UA currently showing trace leukocyte Estrace DVT prophylaxis: Lovenox 40 mg subcutaneously Full code August 18, 2024 Patient is less confused today. Her daughter is at this time bedside and is able to frequently reorient the patient. Patient acknowledges that she is confused and having trouble recognizing an exact timeline of his symptoms. Daughter additionally reports that patient has been walking in the stooping posture for several months. She lives alone and has fallen several times however continues to insist to live alone. She lives bags of dog and cat. Off the floor and moves heavy things around the house typically. She is usually able to get herself off the ground after a fall, however this episode is different. She has never shown signs of confusion before. Ongoing evaluation for source of confusion and generalized weakness MRI of the lumbar spine performed this afternoon showed an acute L4 fracture with mild retropulsion and 30% loss of vertebral body height. Will consult Dr. Kaur from spine surgery. Ultrasound of the liver performed yesterday to assess for transaminitis raises concern for possible cholecystitis. Will obtain HIDA scan to further evaluate. General surgery has been consulted who recommends getting a CT abdomen of the pelvis with contrast to assess for diverticulitis. Potentially if patient is having underlying infection that could certainly explain her confusion. Blood cultures are currently awaited. Change antibiotic coverage from ceftriaxone 1 g IV every 24 hours to piperacillin/tazobactam to cover for potential intra-abdominal processes. Patient is complaining of diffuse pain and tenderness to palpation of multiple muscle groups therefore it is very hard for me to ascertain if the abdominal pain is part of her generalized tenderness or a localized process going on in the abdomen. Patient additionally reports a history of chronic intermittent high-dose steroid use which widens the differential to include atypical processes and opportunistic pathogens. Will perform lumbar puncture to assess for chronic meningitis such as cryptococcus as patient has had exposure to chicken coop's in the past. Additionally since she reports a history of histoplasmosis with ? Flares , will explore this further with histoplasma serology and urine antigen testing today. Check QuantiFERON screen.Check bartonella serology- has cat scratches over her arms B/L Take panel pending Consideration for dermatomyositis given diffuse rash, muscle tenderness and evidence of rhabdomyolysis. Though less likely that this would present for the first time at 61 years of age. TSH and ammonia levels within normal limits. Hepatitis serology negative PDMP PDMP Reviewed: Not Reviewed Attestations 2 Medical Necessity Statement*: Coninued exploration of cause for AMS, assess for cholecytsitis, acute l4 fracture Coding Level of Care Code Acute Code for [facility] Fwd Diagnoses Altered mental status R41.82 Right sided weakness R53.1 Rhabdomyolysis M62.82 Dehydration E86.0 Hypernatremia E87.0 Lumbar stenosis M48.061 L4 vertebral fracture S32.049A
[2024-08-18 16:18] VITALS: BP 154/78; PULSE 103; RESP 17; TEMP 36.8; O2SAT 95
[2024-08-18 21:28] VITALS: BP 137/73; PULSE 106; RESP 16; TEMP 36.7; O2SAT 93
[2024-08-19 01:38] VITALS: BP 99/68; PULSE 92; RESP 17; TEMP 37.1; O2SAT 93
[2024-08-19] MEDS: iohexol 350 mg/mL 500 mL Btl (per mL) IV (01:54)
[2024-08-19] MEDS: piperacillin-tazobactam 3.375 GM in sodium chloride 0.9% (plus) 50 ML IV ×2 (03:03→10:33)
[2024-08-19 05:42] LABS: Basophils # 0.1 10^3/uL (0.0-0.1); Basophils % 0.6 %; Eosinophils # 0.6 10^3/uL (0.0-0.8); Eosinophils % 5.9 %; Hematocrit 37.2 % (36-47); Lymphocytes # 1.5 10^3/uL (0.8-4.8); Lymphocytes % 14.1 %; Mean Corpuscular HGB Conc 32.3 g/dL (30-55); Mean Corpuscular Hemoglobin 28.8 pg (27-33); Mean Corpuscular Volume 89.4 fl (85-98); Mean Platelet Volume 11.8 fL (7.4-10.4); Monocytes # 0.9 10^3/uL (0.2-0.9); Monocytes % 8.8 %; Neutrophils # 7.25 10^3/uL (1.8-7.7); Neutrophils % 69.4 %; Nucleated Red Blood Cells % 0 %; Platelet Count 229 10^3/cmm (157-399); Red Blood Count 4.16 10^6/uL (3.85-5.65); Red Cell Distribution Width 12.4 % (12.1-15.1); White Blood Count 10.46 10^3/uL (3.29-11.43)
[2024-08-19 05:45] VITALS: BP 161/91; PULSE 79; RESP 18; TEMP 36.8; O2SAT 94
[2024-08-19 06:02] LABS: Alanine Aminotransferase 55 U/L (0-33); Albumin Level 3.2 g/dL (3.5-5.2); Alkaline Phosphatase 123 U/L (35-105); Anion Gap 16.3 (5-19); Aspartate Amino Transferase 44 U/L (0-32); Blood Urea Nitrogen 12 mg/dL (8-23); Calcium 8.6 mg/dL (8.5-10.5); Carbon Dioxide 22 mmol/L (22-29); Chloride 105 mmol/L (98-107); Creatinine Clr Calc Pharmacy 81.7976; Globulin 2.4 g/dL (1.3-4.6); Glomerular Filtration Rate 158.7 mL/min (90-130); Glucose 90 mg/dL (65-115); Osmolality Calculated 289 mOsm/kg (285-295); Potassium 3.3 mmol/L (3.5-5.1); Sodium 140 mmol/L (136-145); Total Bilirubin 0.5 mg/dL (0.15-1.2); Total Protein 5.6 g/dL (6.6-8.7)
[2024-08-19 09:02] VITALS: BP 104/61; PULSE 114; RESP 19; TEMP 36.4; O2SAT 94
[2024-08-19] MEDS: lactulose oral liq 20 gm/30 mL UDC 10 GM PO (09:08)
[2024-08-19] MEDS: metoprolol succinate ER (24 HR) 25 mg Tablet PO (09:08)
[2024-08-19] MEDS: amlodipine 5 mg Tablet PO (09:08)
[2024-08-19] MEDS: acetaminophen 325 mg Tablet 650 MG PO (09:11)
--- NOTE | 2024-08-19 10:10 | P.PN_ITS ---
Subjective 2 Subjective: Patient is less confused today. Able to talk mostly coherent. Make sense in her conversation though does veer off of topic and needs to be redirected. Her daughter who is at bedside states she is not yet close to baseline. Medications: Reviewed: Yes Vitals/I&O/Wt Last Vital Signs Temp 98.2 F 08/19/24 12:36 Pulse 108 H 08/19/24 12:36 Resp 18 08/19/24 12:36 BP 122/76 08/19/24 12:36 Pulse Ox 93 08/19/24 12:36 O2 Del Method Room Air 08/19/24 12:36 08/19/24 08/19/24 08/19/24 06:59 14:59 22:59 Intake Total 290 / 3179 1909 Balance 290 / 2729 1909 Weight last 48 hrs Weight 96.615 kg Weight 96.615 kg Weight 94.937 kg Physical Exam 2 Narrative: General: No acute distress, AO x3 HEENT: PERRLA, pupils bilaterally equal and reactive, pallors not present Chest: Normal vesicular breath sounds, no added sounds, equal good air entry bilaterally CVS: S1-S2 regular, no murmurs, no tachycardia, no gallops, no rubs Abdomen: Soft, nontender, no organomegaly, bowel sounds present Neuro: No focal deficits, no facial deformity, AO x3, power 5/5 in all limbs Data 08/19/24 04:51 08/19/24 04:51 Micro: Microbiology 08/17/24 18:13 Blood Culture - Preliminary Blood NEGATIVE TO DATE 08/17/24 18:07 Blood Culture - Preliminary Blood NEGATIVE TO DATE A&P Assessment and plan (1) Altered mental status: (2) Right sided weakness: (3) Rhabdomyolysis: (4) Dehydration: (5) Hypernatremia: (6) Lumbar stenosis: (7) L4 vertebral fracture: Plan 69-year-old lady with very limited history available at this time presenting to the hospital after being down estimated about 5 days when she was last seen by family members. Patient is only able to remember that she was trying to go to the bathroom when she fell to the floor and has been unable to get up. Does not recall the events since then. Labs show evidence of leukocytosis, rhabdomyolysis with elevated CK, hypernatremia and transaminitis. Differentials at this time are broad and include underlying infection, lumbar stenosis with nerve compression/cauda equina resulting in acute lower extremity swelling, though this would not explain her current confusion. Differentials also include stroke given slightly worse weakness on the right side compared to the left, slurred speech and possible aphasia. Check urine drug screen, serum alcohol level, UA, urine culture and blood culture. Stat CT head and CTA of the head and neck ordered to evaluate for stroke. Patient is not within the tPA window. Lumbar spine MRI if CT head and CTA returned negative for stroke. Chest x-ray without any consolidation Pelvic x-ray negative for any acute fractures Ordered ultrasound of the liver given deranged LFTs, obtain hepatitis serology. Check TSH and ammonia levels Check tick panel given diffuse rash, uncertain cause at this time, may be sunburn, however this is less likely as patient was found to indoor For hyponatremia and rhabdomyolysis continue IV fluids as started in the ER, however change normal saline to half-normal saline given hypernatremia. Start ceftriaxone 1 g IV every 24 hours while undergoing infectious evaluation UA currently showing trace leukocyte Estrace DVT prophylaxis: Lovenox 40 mg subcutaneously Full code August 18, 2024 Patient is less confused today. Her daughter is at this time bedside and is able to frequently reorient the patient. Patient acknowledges that she is confused and having trouble recognizing an exact timeline of his symptoms. Daughter additionally reports that patient has been walking in the stooping posture for several months. She lives alone and has fallen several times however continues to insist to live alone. She lives bags of dog and cat. Off the floor and moves heavy things around the house typically. She is usually able to get herself off the ground after a fall, however this episode is different. She has never shown signs of confusion before. Ongoing evaluation for source of confusion and generalized weakness MRI of the lumbar spine performed this afternoon showed an acute L4 fracture with mild retropulsion and 30% loss of vertebral body height. Will consult Dr. Kaur from spine surgery. Ultrasound of the liver performed yesterday to assess for transaminitis raises concern for possible cholecystitis. Will obtain HIDA scan to further evaluate. General surgery has been consulted who recommends getting a CT abdomen of the pelvis with contrast to assess for diverticulitis. Potentially if patient is having underlying infection that could certainly explain her confusion. Blood cultures are currently awaited. Change antibiotic coverage from ceftriaxone 1 g IV every 24 hours to piperacillin/tazobactam to cover for potential intra-abdominal processes. Patient is complaining of diffuse pain and tenderness to palpation of multiple muscle groups therefore it is very hard for me to ascertain if the abdominal pain is part of her generalized tenderness or a localized process going on in the abdomen. Patient additionally reports a history of chronic intermittent high-dose steroid use which widens the differential to include atypical processes and opportunistic pathogens. Will perform lumbar puncture to assess for chronic meningitis such as cryptococcus as patient has had exposure to chicken coop's in the past. Additionally since she reports a history of histoplasmosis with ? Flares , will explore this further with histoplasma serology and urine antigen testing today. Check QuantiFERON screen.Check bartonella serology- has cat scratches over her arms B/L Take panel pending Consideration for dermatomyositis given diffuse rash, muscle tenderness and evidence of rhabdomyolysis. Though less likely that this would present for the first time at 61 years of age. TSH and ammonia levels within normal limits. Hepatitis serology negative August 19, 2024 Patient is less confused today. Mental status is inching closer to baseline, however speech continues to be slightly slurred. Patient still having tangential conversation but estimated only about 10% of the time compared to over 50% previously. Daughter reports that she is not yet at baseline. Hypernatremia remains resolved. Completed HIDA scan this morning which was negative for cholecystitis. CT of the abdomen and pelvis showed stercoral colitis, unlikely to be the explanation of altered mentation and current presentation. Lactulose to enable bowel movements added to her regimen today. Lumbar puncture remains pending. Blood culture is negative to date. Urine culture remains pending. Plan for L4 kyphoplasty on Thursday, once underlying infections are ruled out. Narrow antibiotics from Zosyn back to ceftriaxone. Continue IV fluids Recheck CK with a.m. labs. PDMP PDMP Reviewed: Not Reviewed Attestations 2 Medical Necessity Statement*: Plan for L4 kyphoplasty once acute infectious evaluation is completed Coding Level of Care Code Acute Code for Chg Fwd Diagnoses Altered mental status R41.82 Right sided weakness R53.1 Rhabdomyolysis M62.82 Dehydration E86.0 Hypernatremia E87.0 Lumbar stenosis M48.061 Closed wedge compression fracture of L4 vertebra, initial encounter S32.040A Encounter type: initial encounter Fracture type: closed Fracture morphology: wedge compression
[2024-08-19] MEDS: sodium chloride 0.45% 1,000 ML 75 ML IV ×2 (10:31→22:35)
--- NOTE | 2024-08-19 10:53 | NM_ITS ---
WS: [id number] NUCLEAR MEDICINE HIDA SCAN WITH GALLBLADDER EJECTION FRACTION HISTORY: suspected cholecystitis COMPARISON: None available. TECHNIQUE: The patient was intravenously injected with 8.3 mCi of TC99m Mebrofenin. Immediate imaging over the right upper quadrant was followed by 5 minute image and additional images for a total of 60 minutes. Normal uptake of radiotracer throughout the liver. Activity identified in the gallbladder at 15 minutes and well distended by 60 minutes. Activity in the proximal small bowel was seen by 20 minutes. Good washout of the radiotracer from the liver by 60 minutes. The patient then drank 8 ounces of Ensure Plus. Ejection fraction at 60 minutes was 40%. Normal GB ejection fraction is 35-75%. Post fatty meal symptoms: None. NM/NM hepatobiliary w phar* [id number] IMPRESSION: 1. Normal HIDA scan. 2. Normal gallbladder ejection fraction. 3. No cystic or common bile duct obstruction.
--- NOTE | 2024-08-19 12:05 | P.PN_ITS ---
Subjective 2 Subjective: The patient was seen and evaluated at bedside this am. Her abdominal pain has significantly improved. She does not have nausea or vomiting. She stated that she felt much better after she had a bowel movement over night. Vitals/I&O/Wt Last Vital Signs Temp 97.6 F 08/19/24 09:02 Pulse 114 H 08/19/24 09:02 Resp 19 H 08/19/24 09:02 BP 104/61 08/19/24 09:02 Pulse Ox 94 08/19/24 09:02 O2 Del Method Room Air 08/19/24 09:02 08/18/24 08/19/24 08/19/24 22:59 06:59 14:59 Intake Total 1439 / 2889 290 / 3179 1430 / 1430 Output Total 450 / 450 Balance 989 / 2439 290 / 2729 1430 / 1430 Weight last 48 hrs Weight 213 lb Weight 213 lb Weight 209 lb 4.8 oz Weight 201 lb Physical Exam 2 Const: COMMON NORMALS: no acute distress, patient oriented x3 and well nourished HENMT: COMMON NORMALS: normocephalic and atraumatic HEAD & SCALP: n ormocephalic and atraumatic Chest: COMMONS NORMALS: normal inspection of the chest Resp: COMMON NORMALS: normal respiratory effort and No use of accessory muscles GI: COMMON NORMALS: Normal to inspection, nondistended, normoactive bowel sounds present and Soft to palpation PALPATION: Yes Soft to palpation O THER: Very mildly tender to palpation only in the LLQ. Abdominal exam significantly improved since yesterday. Neuro: COMMON NORMALS: patient oriented x3 and moves all extremities Psych: COMMON NORMALS: cooperative OTHER: Slight confusion, mentation a little worse than yesterday. Data 08/19/24 04:51 08/19/24 04:51 Micro: Microbiology 08/17/24 18:13 Blood Culture - Preliminary Blood NEGATIVE TO DATE 08/17/24 18:07 Blood Culture - Preliminary Blood NEGATIVE TO DATE A&P Assessment and plan (1) Abdominal pain of unknown cause: - I reviewed the right upper quadrant ultrasound, there is in fact cholelithiasis with some of the stones measuring up to approximately 1 cm in diameter. The gallbladder wall is not thickened at 2 mm, and there is no pericholecystic fluid. In the absence of an explanation for the leukocytosis and the questionable positive ultrasonic Estevez's sign, I recommended getting a HIDA scan to rule out acute cholecystitis. - The HIDA scan was negative for acute cholecystitis. No cystic or common bile obstruction. - Bilirubin remains normal and WBC normalized today. -- The patient has a history of an apparently uncomplicated acute diverticulitis. Physical exam findings of left-sided tenderness to palpation and reported left-sided abdominal pain were consistent with a possible acute diverticulitis. I recommend CT abdomen and pelvis with IV contrast yesterday: - CT demonstrated stercoral colitis proctitis and colonic stool. May continue ABXs. - Additionally, the patient's abdominal pain improved with bowel movement. -- This patient will need an elective/outpatient colonoscopy and non-emergent general surgery clinic to discuss gallstones and whether or not they symptomatic. -- I also discussed the patient and plan of care with Dr. Bonilla. (2) Cholelithiasis NOS: (3) History of diverticulitis: (4) Altered mental status: (5) Leukocytosis (leucocytosis): (6) Abnormal LFTs: Plan See above under assessment #1. PDMP PDMP Reviewed: Not Reviewed Attestations 2 Medical Necessity Statement*: Further monitoring vital signs, IV ABXs, labs and hemodynamics. Coding Level of Care Code Acute Code for [facility] Diagnoses Abdominal pain of unknown cause R10.9 Cholelithiasis NOS K80.20 History of diverticulitis Z87.19 Altered mental status R41.82 Leukocytosis (leucocytosis) D72.829 Abnormal LFTs R79.89
--- NOTE | 2024-08-19 12:20 | PM.CONSULT ---
Providers/Reason For Consult Consulting Physician/Specialty*: Hospitalist Reason for Consult*: L4 compression fracture and severe stenosis at L3-4 and L4-5 Attending Physician: Milana Bonilla MD Primary Care Provider: Sunshine Dooley APN History of Present Illness History of Present Illness Lynne Garcia is a 69 year old female who sustained a fall she has an acute L4 compression fracture on MRI. Patient also has severe stenosis at L3-4 and L4-5 and is actually was working with Dr. [facility] to have surgery on this level. Review of Systems Const: Reports: body aches, change in appetite and other (confirms weakness); Denies: fever(s) or chills Card: Reports: chest pain and palpitations GI: Reports: abdominal pain; Denies: nausea, vomiting, constipation, bloating, change in bowel habits or hematochezia : Reports: flank pain Musc: Reports: extremity pain and muscle weakness Medications/Allergies Home Medications ?Medication ?Instructions ?Recorded ?Confirmed ?Last Taken ?Type acetaminophen 300 mg-codeine 30 mg 1 tab PO Q8H PRN Pain 08/17/24 08/17/24 Unknown History tablet cyclobenzaprine 10 mg tablet 10 mg PO BID PRN Spasms 08/17/24 08/17/24 Unknown History fluoxetine 20 mg capsule (Prozac) 20 mg PO DAILY 08/17/24 08/17/24 Unknown History hydrochlorothiazide 25 mg tablet 25 mg PO QAM 08/17/24 08/17/24 Unknown History levothyroxine 50 mcg tablet 50 mcg PO QAM 08/17/24 08/17/24 Unknown History metoprolol succinate 25 mg 25 mg PO DAILY 08/17/24 08/17/24 Unknown History tablet,extended release 24 hr rosuvastatin 20 mg tablet 20 mg PO DAILY 08/17/24 08/17/24 Unknown History triamcinolone acetonide 0.1 % 1 applic topical BID PRN Skin 08/17/24 08/17/24 Unknown History topical cream Irritation Allergies Allergy/AdvReac Type Severity Reaction Status Date / Time levofloxacin (From Levaquin) Allergy Unknown Verified 08/17/24 14:07 lisinopril Allergy ALGY-Swell Verified 08/17/24 21:14 Lip/Tongue/Throat morphine Allergy Unknown Verified 08/17/24 14:07 Current Medications Generic Name Dose Route Start Last Admin Trade Name Jamie PRN Reason Stop Dose Admin Acetaminophen 650 mg 08/17/24 17:31 08/19/24 09:11 Acetaminophen 325 Mg Tablet PO 650 mg Q6H PRN Administration Mild/Mod Pain Or Temp >/= 101 Amlodipine Besylate 5 mg 08/19/24 09:00 08/19/24 09:08 Amlodipine 5 Mg Tablet PO 5 mg DAILY HUNTER Administration Enoxaparin Sodium 40 mg 08/17/24 17:45 08/17/24 18:28 Enoxaparin 40 Mg/0.4 Ml Syringe SUBCUT 40 mg On Hold: 08/18/24 15:52 Q24H HUNTER Administration Sodium Chloride 1,000 mls @ 75 mls/hr 08/17/24 17:45 08/19/24 10:31 Sodium Chloride 0.45% IV 75 mls/hr .[id number] HUNTER Administration Piperacillin Sod/Tazobactam 50 mls @ 12.5 mls/hr 08/18/24 11:15 08/19/24 10:33 Sod 3.375 gm/ Sodium Chloride IV 12.5 mls/hr Q8H HUNTER Administration Protocol Lactulose 10 gm 08/19/24 09:00 08/19/24 09:08 Lactulose Oral Liq 20 Gm/30 Ml Udc PO 10 gm DAILY HUNTER Administration Levothyroxine Sodium 50 mcg 08/18/24 06:00 08/19/24 06:16 Levothyroxine 50 Mcg Tablet PO Not Given QAM HUNTER Metoprolol Succinate 25 mg 08/18/24 09:00 08/19/24 09:08 Metoprolol Succinate Er (24 Hr) 25 Mg Tablet PO 25 mg DAILY HUNTER Administration Vitals/I&O/Wt Last Vital Signs Temp 97.6 F 08/19/24 09:02 Pulse 114 H 08/19/24 09:02 Resp 19 H 08/19/24 09:02 BP 104/61 08/19/24 09:02 Pulse Ox 94 08/19/24 09:02 O2 Del Method Room Air 08/19/24 09:02 08/18/24 08/19/24 08/19/24 22:59 06:59 14:59 Intake Total 1439 / 2889 290 / 3179 1430 / 1430 Output Total 450 / 450 Balance 989 / 2439 290 / 2729 1430 / 1430 Weight last 48 hrs Weight 213 lb Weight 213 lb Weight 209 lb 4.8 oz Weight 201 lb Physical Exam Narrative: Alert and oriented x 3 Head is normocephalic atraumatic Respirations are intact No evidence of any rashes or infection 5/5 strength in bilateral upper and lower extremities Sensation intact in all extremities Data 08/19/24 04:51 08/19/24 04:51 Micro: Microbiology 08/17/24 18:13 Blood Culture - Preliminary Blood NEGATIVE TO DATE 08/17/24 18:07 Blood Culture - Preliminary Blood NEGATIVE TO DATE A&P Assessment and plan (1) L4 vertebral fracture: Patient has severe stenosis L3-4 and L4-5. Also a L4 wedge osteoporotic traumatic compression fracture. At this point my plan is to do surgery on Thursday which would be a kyphoplasty at L4 and a will invasive decompression at L3/4 and L4/5. I had an open and honest discussion with the patient about the risks, benefits and alternatives to both surgical and nonsurgical treatment. The patient verbalized understanding of the inherent unpredictability associated with surgery. Risk of surgery were discussed including, but not limited to, infection, bleeding, temporary and permanent nerve damage, continued pain, stiffness, incomplete healing, need for revision surgery, blood clot and other complications. The patient verbalized understanding that there is spine is elective in nature and if they find any of these risks to be unacceptable then they should choose not to have the surgery. The patient verbalized understanding of these risks and elected to proceed with the surgery. PDMP PDMP Reviewed: Not Reviewed Coding Level of Care Code Acute Code for [facility] Fwd Diagnoses Closed wedge compression fracture of L4 vertebra, initial encounter S32.040A Encounter type: initial encounter Fracture type: closed Fracture morphology: wedge compression
--- NOTE | 2024-08-19 12:24 | FL_ITS ---
WS: [id number] LUMBAR PUNCTURE CLINICAL INFORMATION: AMS COMPARISON: None. TECHNIQUE: Informed consent: The procedure and its potential risk and complications were discussed with the patient. Verbal and written consent was obtained. Timeout: A timeout was performed to confirm correct patient, procedure, and site. Patient was prepped and draped in the usual sterile fashion. Lidocaine 1% was used for local anesthesia. Utilizing fluoroscopic guidance, a 3.5 inch 22-gauge spinal needle was advanced into the subarachnoid space at L2-3 via LEFT oblique sublaminar approach. Free flow of clear CSF was obtained. 7-8 cc of clear CSF was collected and sent the lab for further analysis. No additional CSF could be obtained. FLUOROSCOPIC TIME: 0min [id number] # of spot films: 1 FL/FL guided lumbarpunc dx* [id number] IMPRESSION: Fluoroscopically guided lumbar puncture. No immediate complications Flow stopped after 7 to 8 cc of clear CSF was obtained
[2024-08-19 12:36] VITALS: BP 122/76; PULSE 108; RESP 18; TEMP 36.8; O2SAT 93
[2024-08-19 14:06] LABS: Appearance CSF CLEAR (CLEAR); Color CSF COLORLESS (COLORLESS); Pathology Referral Yes
[2024-08-19 14:12] LABS: Cyto Order Verification No Order
[2024-08-19 14:14] LABS: CSF Mononuclear # 0.006 10^3/uL (50-90); Mononuclear WBC CSF % 100 % (50-90); Polynuclear WBC CSF % 0 % (0-10); Red Blood Cell CSF 0 10^3/uL (0-0); White Blood Cell CSF 6 /uL (0-5)
[2024-08-19 14:35] LABS: Glucose CSF 63 mg/dL (40-70); Total Protein CSF 106 mg/dL (15-45)
[2024-08-19 16:09] VITALS: BP 146/78; PULSE 76; RESP 19; TEMP 36.9; O2SAT 92
[2024-08-19] MEDS: cefTRIAXone 1,000 mg SDV 1000 MG IVP (17:28)
[2024-08-19] MEDS: acyclovir 1,000 MG in sodium chloride 0.9% 250 ML 270 MG IV (17:30)
[2024-08-19 19:43] LABS: Adenovirus Not Detected (NOT DETECT); Chlamydia Pneumoniae Not Detected (NOT DETECT); Coronavirus 229E,HKU1,NL63,OC4 Not Detected (NOT DETECT); Human Metapneumovirus Not Detected (NOT DETECT); Human Rhinovirus/Enterovirus Not Detected (NOT DETECT); Influenza A Not Detected (NOT DETECT); Influenza A H1 Not Detected (NOT DETECT); Influenza A H1-2009 Not Detected (NOT DETECT); Influenza A H3 Not Detected (NOT DETECT); Influenza B Not Detected (NOT DETECT); Mycoplasma Pneumoniae Not Detected (NOT DETECT); Parainfluenza Virus Type 1 Not Detected (NOT DETECT); Parainfluenza Virus Type 2 Not Detected (NOT DETECT); Parainfluenza Virus Type 3 Not Detected (NOT DETECT); Parainfluenza Virus Type 4 Not Detected (NOT DETECT); Respiratory Syncytial Virus A Not Detected (NOT DETECT); Respiratory Syncytial Virus B Not Detected (NOT DETECT); SARS-COV-2 Not Detected (NOT DETECT)
[2024-08-19 20:00] VITALS: BP 143/78; PULSE 89; RESP 18; TEMP 36.7; O2SAT 92
[2024-08-20] VITALS: BP 143/77; PULSE 88; RESP 18; TEMP 36.9; O2SAT 92
[2024-08-20] MEDS: acyclovir 1,000 MG in sodium chloride 0.9% 250 ML 270 MG IV ×4 (01:06→23:47)
[2024-08-20 04:00] VITALS: BP 135/62; PULSE 79; RESP 18; TEMP 36.9; O2SAT 95
[2024-08-20 04:03] LABS: Lyme AB Screen <0.90 index
[2024-08-20] MEDS: levothyroxine 50 mcg Tablet PO (05:14)
[2024-08-20 05:39] LABS: Basophils # 0.1 10^3/uL (0.0-0.1); Basophils % 0.7 %; Eosinophils # 0.7 10^3/uL (0.0-0.8); Eosinophils % 8.3 %; Hematocrit 35.5 % (36-47); Lymphocytes # 1.5 10^3/uL (0.8-4.8); Lymphocytes % 17.9 %; Mean Corpuscular Hemoglobin 29.5 pg (27-33); Mean Corpuscular Volume 89.4 fl (85-98); Mean Platelet Volume 11.4 fL (7.4-10.4); Monocytes # 0.9 10^3/uL (0.2-0.9); Monocytes % 10.6 %; Neutrophils # 5.06 10^3/uL (1.8-7.7); Neutrophils % 60.7 %; Nucleated Red Blood Cells % 0 %; Platelet Count 215 10^3/cmm (157-399); Red Blood Count 3.97 10^6/uL (3.85-5.65); Red Cell Distribution Width 12.2 % (12.1-15.1); White Blood Count 8.33 10^3/uL (3.29-11.43)
[2024-08-20 06:06] LABS: Alanine Aminotransferase 55 U/L (0-33); Alkaline Phosphatase 122 U/L (35-105); Anion Gap 13.9 (5-19); Aspartate Amino Transferase 43 U/L (0-32); Blood Urea Nitrogen 8 mg/dL (8-23); Carbon Dioxide 23 mmol/L (22-29); Chloride 103 mmol/L (98-107); Globulin 2.4 g/dL (1.3-4.6); Glomerular Filtration Rate 158.7 mL/min (90-130); Glucose 90 mg/dL (65-115); Osmolality Calculated 282 mOsm/kg (285-295); Sodium 137 mmol/L (136-145); Total Bilirubin 0.4 mg/dL (0.15-1.2); Total Protein 5.4 g/dL (6.6-8.7)
[2024-08-20 06:27] LABS: Potassium 2.9 mmol/L (3.5-5.1)
[2024-08-20] MEDS: potassium chloride ER 20 mEq Tablet 40 MEQ PO (06:42)
[2024-08-20 06:58] LABS: Magnesium 1.9 mg/dL (1.7-2.3); Phosphorus 2.7 mg/dL (2.5-4.5)
[2024-08-20 07:35] VITALS: BP 157/79; PULSE 94; RESP 16; TEMP 36.6; O2SAT 94
[2024-08-20] MEDS: lactulose oral liq 20 gm/30 mL UDC 10 GM PO (08:56)
[2024-08-20] MEDS: metoprolol succinate ER (24 HR) 25 mg Tablet PO (08:56)
[2024-08-20] MEDS: amlodipine 5 mg Tablet PO (08:56)
--- NOTE | 2024-08-20 08:56 | PM.PN ---
Subjective Subjective: The patient was seen and evaluated again at bedside this morning. Her abdominal pain has completely resolved. She denied nausea or vomiting. She has been having regular bowel movements. Vitals/I&O/Wt Last Vital Signs Temp 97.8 F 08/20/24 07:35 Pulse 94 08/20/24 07:35 Resp 16 08/20/24 07:35 BP 157/79 08/20/24 07:35 Pulse Ox 94 08/20/24 07:35 O2 Del Method Room Air 08/20/24 07:35 08/19/24 08/20/24 08/20/24 22:59 06:59 14:59 Intake Total 1225 / 3135 270 / 3405 60 / 60 Output Total 800 / 800 400 / 1200 Balance 425 / 2335 -130 / 2205 60 / 60 Weight last 48 hrs Weight 209 lb 12.8 oz Weight 213 lb Physical Exam Const: COMMON NORMALS: no acute distress and patient oriented x3 HENMT: COMMON NORMALS: normocephalic and atraumatic HEAD & SCALP: normocephalic and atraumatic Chest: COMMONS NORMALS: normal inspection of the chest Resp: COMMON NORMALS: normal respiratory effort and No use of accessory muscles GI: COMMON NORMALS: Soft to palpation and non-tender PALPATION: Yes Soft to palpation Neuro: COMMON NORMALS: patient oriented x3 and moves all extremities Psych: COMMON NORMALS: Normal thought process present and cooperative THOUGHT PROCESS: Normal thought process present Data 08/20/24 05:10 08/20/24 05:10 Micro: Microbiology 08/19/24 13:40 Gram Stain - Final Cerebrospinal Fluid Cryptococcal Antigen (CSF) - Final A&P Assessment and plan (1) Abdominal pain of unknown cause: -- Abdominal pain has resolved. -- HIDA scan was negative for acute cholecystitis. No cystic or common bile duct obstruction -- Leukocytosis resolved and bilirubin remains normal. -- CT demonstrated stercoral proctitis and colonic stool. Left-sided abdominal pain has resolved after multiple bowel movements. -- This patient will need an elective/outpatient colonoscopy, as she stated that she has not had a colonoscopy in over 30 years, and non-emergent general surgery clinic to discuss gallstones and whether or not they symptomatic. -- I will sign off the case. Please let me know if you have any further questions or problems. (2) Leukocytosis (leucocytosis): (3) Cholelithiasis NOS: (4) History of diverticulitis: (5) Abnormal LFTs: PDMP PDMP Reviewed: Not Reviewed Attestations Medical Necessity Statement*: Further monitoring vital signs, IV ABXs, labs and hemodynamics. Coding Level [facility] Abdominal pain of unknown cause R10.9 Leukocytosis (leucocytosis) D72.829 Cholelithiasis NOS K80.20 History of diverticulitis Z87.19 Abnormal LFTs R79.89
[2024-08-20] MEDS: sodium chloride 0.45% 1,000 ML 75 ML IV ×2 (09:03→21:09)
[2024-08-20 11:46] VITALS: BP 137/95; PULSE 71; RESP 16; TEMP 36.8; O2SAT 95
[2024-08-20] MEDS: cefTRIAXone 1,000 mg SDV 1000 MG IVP (15:37)
[2024-08-20 16:17] VITALS: BP 132/93; PULSE 102; TEMP 36.7; O2SAT 92
--- NOTE | 2024-08-20 16:43 | P.PN_ITS ---
Subjective 2 Subjective: Patient is alert awake oriented, much more appropriate in conversation today. Less confused than prior exams. Her speech does continue to sound slightly slurred however overall this is much improved compared to admission. Medications: Reviewed: Yes Vitals/I&O/Wt Last Vital Signs Temp 98.0 F 08/20/24 16:17 Pulse 102 H 08/20/24 16:17 Resp 16 08/20/24 11:46 BP 132/93 08/20/24 16:17 Pulse Ox 92 08/20/24 16:17 O2 Del Method Room Air 08/20/24 16:17 08/20/24 08/20/24 08/20/24 06:59 14:59 22:59 Intake Total 270 / 3405 1235 / 1235 270 / 1505 Output Total 400 / 1200 Balance -130 / 2205 1235 / 1235 270 / 1505 Weight last 48 hrs Weight 95.164 kg Weight 96.615 kg Physical Exam 2 Narrative: General: No acute distress, AO x3 HEENT: PERRLA, pupils bilaterally equal and reactive, pallors not present Chest: Normal vesicular breath sounds, no added sounds, equal good air entry bilaterally CVS: S1-S2 regular, no murmurs, no tachycardia, no gallops, no rubs Abdomen: Soft, nontender, no organomegaly, bowel sounds present Data 08/20/24 05:10 08/20/24 05:10 Micro: Microbiology 08/19/24 13:40 Gram Stain - Final Cerebrospinal Fluid CSF Culture - Preliminary Cryptococcal Antigen (CSF) - Final A&P Assessment and plan (1) Altered mental status: (2) Right sided weakness: (3) Rhabdomyolysis: (4) Dehydration: (5) Hypernatremia: (6) Lumbar stenosis: (7) L4 vertebral fracture: Plan 69-year-old lady with very limited history available at this time presenting to the hospital after being down estimated about 5 days when she was last seen by family members. Patient is only able to remember that she was trying to go to the bathroom when she fell to the floor and has been unable to get up. Does not recall the events since then. Labs show evidence of leukocytosis, rhabdomyolysis with elevated CK, hypernatremia and transaminitis. Differentials at this time are broad and include underlying infection, lumbar stenosis with nerve compression/cauda equina resulting in acute lower extremity swelling, though this would not explain her current confusion. Differentials also include stroke given slightly worse weakness on the right side compared to the left, slurred speech and possible aphasia. Check urine drug screen, serum alcohol level, UA, urine culture and blood culture. Stat CT head and CTA of the head and neck ordered to evaluate for stroke. Patient is not within the tPA window. Lumbar spine MRI if CT head and CTA returned negative for stroke. Chest x-ray without any consolidation Pelvic x-ray negative for any acute fractures Ordered ultrasound of the liver given deranged LFTs, obtain hepatitis serology. Check TSH and ammonia levels Check tick panel given diffuse rash, uncertain cause at this time, may be sunburn, however this is less likely as patient was found to indoor For hyponatremia and rhabdomyolysis continue IV fluids as started in the ER, however change normal saline to half-normal saline given hypernatremia. Start ceftriaxone 1 g IV every 24 hours while undergoing infectious evaluation UA currently showing trace leukocyte Estrace DVT prophylaxis: Lovenox 40 mg subcutaneously Full code August 18, 2024 Patient is less confused today. Her daughter is at this time bedside and is able to frequently reorient the patient. Patient acknowledges that she is confused and having trouble recognizing an exact timeline of his symptoms. Daughter additionally reports that patient has been walking in the stooping posture for several months. She lives alone and has fallen several times however continues to insist to live alone. She lives bags of dog and cat. Off the floor and moves heavy things around the house typically. She is usually able to get herself off the ground after a fall, however this episode is different. She has never shown signs of confusion before. Ongoing evaluation for source of confusion and generalized weakness MRI of the lumbar spine performed this afternoon showed an acute L4 fracture with mild retropulsion and 30% loss of vertebral body height. Will consult Dr. Kaur from spine surgery. Ultrasound of the liver performed yesterday to assess for transaminitis raises concern for possible cholecystitis. Will obtain HIDA scan to further evaluate. General surgery has been consulted who recommends getting a CT abdomen of the pelvis with contrast to assess for diverticulitis. Potentially if patient is having underlying infection that could certainly explain her confusion. Blood cultures are currently awaited. Change antibiotic coverage from ceftriaxone 1 g IV every 24 hours to piperacillin/tazobactam to cover for potential intra-abdominal processes. Patient is complaining of diffuse pain and tenderness to palpation of multiple muscle groups therefore it is very hard for me to ascertain if the abdominal pain is part of her generalized tenderness or a localized process going on in the abdomen. Patient additionally reports a history of chronic intermittent high-dose steroid use which widens the differential to include atypical processes and opportunistic pathogens. Will perform lumbar puncture to assess for chronic meningitis such as cryptococcus as patient has had exposure to chicken coop's in the past. Additionally since she reports a history of histoplasmosis with ? Flares , will explore this further with histoplasma serology and urine antigen testing today. Check QuantiFERON screen.Check bartonella serology- has cat scratches over her arms B/L Take panel pending Consideration for dermatomyositis given diffuse rash, muscle tenderness and evidence of rhabdomyolysis. Though less likely that this would present for the first time at 61 years of age. TSH and ammonia levels within normal limits. Hepatitis serology negative August 19, 2024 Patient is less confused today. Mental status is inching closer to baseline, however speech continues to be slightly slurred. Patient still having tangential conversation but estimated only about 10% of the time compared to over 50% previously. Daughter reports that she is not yet at baseline. Hypernatremia remains resolved. Completed HIDA scan this morning which was negative for cholecystitis. CT of the abdomen and pelvis showed stercoral colitis, unlikely to be the explanation of altered mentation and current presentation. Lactulose to enable bowel movements added to her regimen today. Lumbar puncture remains pending. Blood culture is negative to date. Urine culture remains pending. Plan for L4 kyphoplasty on Thursday, once underlying infections are ruled out. Narrow antibiotics from Zosyn back to ceftriaxone. Continue IV fluids Recheck CK with a.m. labs. August 20, 2024 Patient's confusion continues to improve. More appropriate in conversation today. Sodium level at 137. Potassium at 2.9 today which was repleted this morning. Liver enzymes remain stable. Completed lumbar puncture yesterday. Noted to have a cell count of 6, mononuclear infiltrate, normal CSF glucose at 63, CSF total protein elevated at 106. Started on presumptive acyclovir yesterday which we will continue for now. Pending HSV 1 and 2 DNA and VZV PCR. Respiratory viral panel negative. Pending histoplasma and Coccidioides serology. Pending Bartonella serology. Improving bilateral upper extremity strength. Muscle tenderness much improved. Continues to have limited lower extremity strength, unable to lift legs more than 30 degrees. Still has some confusion as patient believes she participated with PT today, however they have not been in her room today. Alternately elevated CSF protein may be related to L4 lumbar fracture with nerve irritation. Planned for surgical intervention next week. PDMP PDMP Reviewed: Not Reviewed Attestations 2 Medical Necessity Statement*: Planned upcoming surgical intervention Coding Level of Care Code Acute Code for [facility] Fwd Diagnoses Altered mental status R41.82 Right sided weakness R53.1 Rhabdomyolysis M62.82 Dehydration E86.0 Hypernatremia E87.0 Lumbar stenosis M48.061 Closed wedge compression fracture of L4 vertebra, initial encounter S32.040A Encounter type: initial encounter Fracture type: closed Fracture morphology: wedge compression
[2024-08-20 20:00] VITALS: BP 143/72; PULSE 105; RESP 18; TEMP 36.9; O2SAT 95
[2024-08-21] VITALS: BP 153/61; PULSE 90; RESP 18; TEMP 37.4; O2SAT 95
[2024-08-21 04:00] VITALS: BP 167/75; PULSE 86; RESP 19; TEMP 36.7; O2SAT 93
[2024-08-21 04:19] LABS: Basophils # 0.1 10^3/uL (0.0-0.1); Basophils % 0.7 %; Eosinophils # 0.7 10^3/uL (0.0-0.8); Eosinophils % 7.5 %; Hematocrit 37.5 % (36-47); Lymphocytes # 1.6 10^3/uL (0.8-4.8); Lymphocytes % 18.3 %; Mean Corpuscular HGB Conc 32.5 g/dL (30-55); Mean Corpuscular Hemoglobin 28.4 pg (27-33); Mean Corpuscular Volume 87.2 fl (85-98); Mean Platelet Volume 11.6 fL (7.4-10.4); Monocytes # 0.9 10^3/uL (0.2-0.9); Monocytes % 10.5 %; Neutrophils # 5.29 10^3/uL (1.8-7.7); Neutrophils % 60.8 %; Nucleated Red Blood Cells % 0 %; Platelet Count 232 10^3/cmm (157-399); Red Cell Distribution Width 12.3 % (12.1-15.1); White Blood Count 8.69 10^3/uL (3.29-11.43)
[2024-08-21 04:24] LABS: COMPLEMENT COMPONENT C3C 178 mg/dL (83-193); COMPLEMENT COMPONENT C4C 30 mg/dL (15-57)
[2024-08-21 04:46] LABS: Alanine Aminotransferase 49 U/L (0-33); Albumin Level 3.2 g/dL (3.5-5.2); Alkaline Phosphatase 130 U/L (35-105); Anion Gap 15.3 (5-19); Aspartate Amino Transferase 36 U/L (0-32); Blood Urea Nitrogen 6 mg/dL (8-23); Calcium 9.1 mg/dL (8.5-10.5); Carbon Dioxide 23 mmol/L (22-29); Chloride 103 mmol/L (98-107); Globulin 2.7 g/dL (1.3-4.6); Glomerular Filtration Rate 158.7 mL/min (90-130); Glucose 90 mg/dL (65-115); Osmolality Calculated 283 mOsm/kg (285-295); Potassium 3.3 mmol/L (3.5-5.1); Sodium 138 mmol/L (136-145); Total Bilirubin 0.3 mg/dL (0.15-1.2); Total Protein 5.9 g/dL (6.6-8.7)
[2024-08-21] MEDS: levothyroxine 50 mcg Tablet PO (05:24)
[2024-08-21 08:04] VITALS: BP 173/94; PULSE 84; RESP 18; TEMP 36.5; O2SAT 96
--- NOTE | 2024-08-21 08:49 | P.PN_ITS ---
Subjective 2 Subjective: Sounds like patient is trying to be ruled out for tuberculosis. Vitals/I&O/Wt Last Vital Signs Temp 97.7 F 08/21/24 08:04 Pulse 84 08/21/24 08:04 Resp 18 08/21/24 08:04 BP 173/94 08/21/24 08:04 Pulse Ox 96 08/21/24 08:04 O2 Del Method Room Air 08/21/24 08:04 08/20/24 08/21/24 08/21/24 22:59 06:59 14:59 Intake Total 1297.5 / 2532.5 270 / 2802.5 240 / 240 Output Total 3300 / 3300 800 / 4100 Balance -2002.5 / -767.5 -530 / -1297.5 240 / 240 Weight last 48 hrs Weight 200 lb 1.6 oz Weight 209 lb 12.8 oz Data 08/21/24 03:54 08/21/24 03:54 Micro: Microbiology 08/19/24 13:40 Mycobacterial Smear - Preliminary Cerebrospinal Fluid 08/19/24 13:40 Gram Stain - Final Cerebrospinal Fluid CSF Culture - Preliminary Cryptococcal Antigen (CSF) - Final A&P Assessment and plan (1) L4 vertebral fracture: Will check in morning to see if patient is cleared for surgery. PDMP PDMP Reviewed: Not Reviewed Attestations 2 Medical Necessity Statement*: Per primary service Coding Level of Care Code Acute Code for [facility] Diagnoses Closed wedge compression fracture of L4 vertebra, initial encounter S32.040A Encounter type: initial encounter Fracture type: closed Fracture morphology: wedge compression
[2024-08-21] MEDS: hyDRALAzine 20 mg/mL INJ 1 mL 5 MG IVP ×2 (08:56→19:08)
[2024-08-21] MEDS: acyclovir 1,000 MG in sodium chloride 0.9% 250 ML 270 MG IV (08:56)
[2024-08-21] MEDS: lactulose oral liq 20 gm/30 mL UDC 10 GM PO (08:57)
[2024-08-21] MEDS: metoprolol succinate ER (24 HR) 25 mg Tablet PO (08:57)
[2024-08-21] MEDS: amlodipine 5 mg Tablet PO (08:57)
[2024-08-21 11:47] VITALS: BP 152/89; PULSE 89; RESP 18; TEMP 36.7; O2SAT 95
--- NOTE | 2024-08-21 14:44 | CTR_ITS ---
PROCEDURE INFORMATION: Exam: CTA Chest With Contrast Exam date and time: 08/21/2024 3:55 PM Age: 69 years old Clinical indication: Shortness of breath; Additional info: Assess for pe TECHNIQUE: Imaging protocol: Computed tomographic angiography of the chest with contrast. Exam focused on the arteries. 3D rendering (Not supervised by radiologist): MIP and/or 3D reconstructed images were created by the technologist. Radiation optimization: All CT scans at this facility use at least one of these dose optimization techniques: automated exposure control; mA and/or kV adjustment per patient size (includes targeted exams where dose is matched to clinical indication); or iterative reconstruction. Contrast material: OMNI 350; Contrast volume: 61 ml; Contrast route: INTRAVENOUS (IV); COMPARISON: CR XR chest 2V* [id number] 12/19/2021 10:35 AM RADIATION DOSE METRICS: Total DLP (mGy-cm): 405.25 FINDINGS: Pulmonary arteries: Within the right upper lobe segmental pulmonary artery posteriorly (image 143, series 7 and image 41, series 11) there is suggestion of an intraluminal filling defect concerning for a small pulmonary embolism. Aorta: Minimal atherosclerosis in the thoracic aorta without aneurysm or dissection. Lungs: Minimal nonspecific dependent consolidation in both lung bases and minimally within lingula and right middle lobe. Pleural spaces: No pneumothorax. Small pleural effusions in the lung bases. Heart: Normal size of the heart. No pericardial effusion.Coronary artery calcification is present. No evidence of right heart strain. The RV/LV ratio measures approximately 0.9. Mediastinal space: Granulomatous calcifications in the hilum and mediastinum. Lymph nodes: No enlarged mediastinal lymphadenopathy. Upper abdomen: Cholelithiasis is present in the gallbladder. No evidence of cholecystitis.Calcifications are seen in the spleen suggesting sequelae of remote prior granulomatous disease.The visualized upper abdominal solid organs and hollow viscera are otherwise unremarkable. Bones/joints: Focal contour abnormality suggesting a nondisplaced fracture of the anterior left 5th rib and 6th rib. Mild scattered degenerative changes within the thoracic spine. No aggressive osseous lesion. Soft tissues: The visualized superficial soft tissues have a normal appearance. CT/CT angio chest PE protcl [id number] IMPRESSION: 1. Small filling defect within a posterior segmental branch of the right upper lobe pulmonary artery concerning for small pulmonary embolism. No additional pulmonary emboli are seen. No evidence of right heart strain. 2. Small bilateral pleural effusions and minimal nonspecific dependent consolidation in the lung bases which could represent infiltrate or atelectasis. 3. Nondisplaced fractures suggested at the left anterior 5th and 6th ribs. No pneumothorax. 4. Other incidental and/or chronic findings as detailed above.
[2024-08-21 15:50] LABS: Troponin(5th) Baseline 10 ng/L (0-10)
[2024-08-21] MEDS: iohexol 350 mg/mL 500 mL Btl (per mL) IV (16:03)
--- NOTE | 2024-08-21 16:20 | ECG_ITS ---
[facility] Test Date: 2024-08-21 Pat Name: Lynne Garcia Department: Room: 262 Gender: Female Junior Buyer: : [id number] Requested By: Milana Bonilla Order Number: [id number] Reading MD: Becca Reed M.D. Measurements Intervals [place] Rate: 79 P: 77 [place]: 144 QRS: 3 QRSD: 77 T: 30 QT: 387 QTc: 445 Interpretive Statements SINUS RHYTHM WITH SINUS ARRHYTHMIA Compared to ECG 08/17/2024 14:28:42 T-wave abnormality no longer present Electronically Signed On 08-21-2024 19:53:37 CDT by Becca Reed M.D. [email or web address]
--- NOTE | 2024-08-21 16:43 | P.PN_ITS ---
Subjective 2 Subjective: Awake alert, appropriate in conversation. Speech continues to sound slightly slurred, however no confusion exhibited today. Complaining of left-sided chest discomfort which is worse today than previous days. Medications: Reviewed: Yes Vitals/I&O/Wt Last Vital Signs Temp 98.1 F 08/21/24 11:47 Pulse 89 08/21/24 11:47 Resp 18 08/21/24 11:47 BP 152/89 08/21/24 11:47 Pulse Ox 95 08/21/24 11:47 O2 Del Method Room Air 08/21/24 11:47 08/21/24 08/21/24 08/21/24 06:59 14:59 22:59 Intake Total 270 / 2802.5 1630 / 1630 Output Total 800 / 4100 1999 Balance -530 / -1297.5 -370 / -370 Weight last 48 hrs Weight 90.764 kg Weight 95.164 kg Physical Exam 2 Narrative: General: No acute distress, AO x3 HEENT: PERRLA, pupils bilaterally equal and reactive, pallors not present Chest: Normal vesicular breath sounds, no added sounds, equal good air entry bilaterally CVS: S1-S2 regular, no murmurs, no tachycardia, no gallops, no rubs Abdomen: Soft, nontender, no organomegaly, bowel sounds present Neuro: No focal deficits, no facial deformity, AO x3, power 5/5 in all limbs Data 08/21/24 03:54 08/21/24 03:54 Micro: Microbiology 08/19/24 13:40 Gram Stain - Final Cerebrospinal Fluid CSF Culture - Preliminary Cryptococcal Antigen (CSF) - Final 08/19/24 13:40 Mycobacterial Smear - Preliminary Cerebrospinal Fluid Other data: CT/CT angio chest PE protcl [id number] IMPRESSION: 1. Small filling defect within a posterior segmental branch of the right upper lobe pulmonary artery concerning for small pulmonary embolism. No additional pulmonary emboli are seen. No evidence of right heart strain. 2. Small bilateral pleural effusions and minimal nonspecific dependent consolidation in the lung bases which could represent infiltrate or atelectasis. 3. Nondisplaced fractures suggested at the left anterior 5th and 6th ribs. No pneumothorax. 4. Other incidental and/or chronic findings as detailed above. A&P Assessment and plan (1) Altered mental status: (2) Right sided weakness: (3) Rhabdomyolysis: (4) Dehydration: (5) Hypernatremia: (6) Lumbar stenosis: (7) L4 vertebral fracture: (8) Rib fracture: (9) Pulmonary embolism: (10) Chest pain: Plan 69-year-old lady with very limited history available at this time presenting to the hospital after being down estimated about 5 days when she was last seen by family members. Patient is only able to remember that she was trying to go to the bathroom when she fell to the floor and has been unable to get up. Does not recall the events since then. Labs show evidence of leukocytosis, rhabdomyolysis with elevated CK, hypernatremia and transaminitis. Differentials at this time are broad and include underlying infection, lumbar stenosis with nerve compression/cauda equina resulting in acute lower extremity swelling, though this would not explain her current confusion. Differentials also include stroke given slightly worse weakness on the right side compared to the left, slurred speech and possible aphasia. Check urine drug screen, serum alcohol level, UA, urine culture and blood culture. Stat CT head and CTA of the head and neck ordered to evaluate for stroke. Patient is not within the tPA window. Lumbar spine MRI if CT head and CTA returned negative for stroke. Chest x-ray without any consolidation Pelvic x-ray negative for any acute fractures Ordered ultrasound of the liver given deranged LFTs, obtain hepatitis serology. Check TSH and ammonia levels Check tick panel given diffuse rash, uncertain cause at this time, may be sunburn, however this is less likely as patient was found to indoor For hyponatremia and rhabdomyolysis continue IV fluids as started in the ER, however change normal saline to half-normal saline given hypernatremia. Start ceftriaxone 1 g IV every 24 hours while undergoing infectious evaluation UA currently showing trace leukocyte Estrace DVT prophylaxis: Lovenox 40 mg subcutaneously Full code August 18, 2024 Patient is less confused today. Her daughter is at this time bedside and is able to frequently reorient the patient. Patient acknowledges that she is confused and having trouble recognizing an exact timeline of his symptoms. Daughter additionally reports that patient has been walking in the stooping posture for several months. She lives alone and has fallen several times however continues to insist to live alone. She lives bags of dog and cat. Off the floor and moves heavy things around the house typically. She is usually able to get herself off the ground after a fall, however this episode is different. She has never shown signs of confusion before. Ongoing evaluation for source of confusion and generalized weakness MRI of the lumbar spine performed this afternoon showed an acute L4 fracture with mild retropulsion and 30% loss of vertebral body height. Will consult Dr. Kaur from spine surgery. Ultrasound of the liver performed yesterday to assess for transaminitis raises concern for possible cholecystitis. Will obtain HIDA scan to further evaluate. General surgery has been consulted who recommends getting a CT abdomen of the pelvis with contrast to assess for diverticulitis. Potentially if patient is having underlying infection that could certainly explain her confusion. Blood cultures are currently awaited. Change antibiotic coverage from ceftriaxone 1 g IV every 24 hours to piperacillin/tazobactam to cover for potential intra-abdominal processes. Patient is complaining of diffuse pain and tenderness to palpation of multiple muscle groups therefore it is very hard for me to ascertain if the abdominal pain is part of her generalized tenderness or a localized process going on in the abdomen. Patient additionally reports a history of chronic intermittent high-dose steroid use which widens the differential to include atypical processes and opportunistic pathogens. Will perform lumbar puncture to assess for chronic meningitis such as cryptococcus as patient has had exposure to chicken coop's in the past. Additionally since she reports a history of histoplasmosis with ? Flares , will explore this further with histoplasma serology and urine antigen testing today. Check QuantiFERON screen.Check bartonella serology- has cat scratches over her arms B/L Take panel pending Consideration for dermatomyositis given diffuse rash, muscle tenderness and evidence of rhabdomyolysis. Though less likely that this would present for the first time at 61 years of age. TSH and ammonia levels within normal limits. Hepatitis serology negative August 19, 2024 Patient is less confused today. Mental status is inching closer to baseline, however speech continues to be slightly slurred. Patient still having tangential conversation but estimated only about 10% of the time compared to over 50% previously. Daughter reports that she is not yet at baseline. Hypernatremia remains resolved. Completed HIDA scan this morning which was negative for cholecystitis. CT of the abdomen and pelvis showed stercoral colitis, unlikely to be the explanation of altered mentation and current presentation. Lactulose to enable bowel movements added to her regimen today. Lumbar puncture remains pending. Blood culture is negative to date. Urine culture remains pending. Plan for L4 kyphoplasty on Thursday, once underlying infections are ruled out. Narrow antibiotics from Zosyn back to ceftriaxone. Continue IV fluids Recheck CK with a.m. labs. August 20, 2024 Patient's confusion continues to improve. More appropriate in conversation today. Sodium level at 137. Potassium at 2.9 today which was repleted this morning. Liver enzymes remain stable. Completed lumbar puncture yesterday. Noted to have a cell count of 6, mononuclear infiltrate, normal CSF glucose at 63, CSF total protein elevated at 106. Started on presumptive acyclovir yesterday which we will continue for now. Pending HSV 1 and 2 DNA and VZV PCR. Respiratory viral panel negative. Pending histoplasma and Coccidioides serology. Pending Bartonella serology. Improving bilateral upper extremity strength. Muscle tenderness much improved. Continues to have limited lower extremity strength, unable to lift legs more than 30 degrees. Still has some confusion as patient believes she participated with PT today, however they have not been in her room today. Alternately elevated CSF protein may be related to L4 lumbar fracture with nerve irritation. Planned for surgical intervention next week. August 21, 2024 Patient confusion continues to improve. She is able to have an appropriate conversation. Discontinue acyclovir. No convincing evidence of meningoencephalitis at this time. Addition of acyclovir over the last 48 hours did not appear to have made a meaningful difference to her symptomatology. Likely elevated protein on CSF with other normal parameters is most likely related to L4 acute fracture and resulting nerve compression. Patient complained of left-sided chest discomfort today which was worse compared to previous days. Also noted to be short of breath in conversation today which is new. EKG and baseline troponin were noted normal. CTA of the chest was ordered to evaluate for PE. And the study did show a small right-sided PE for which patient has been started on an anticoagulation with heparin drip. Was a small filling defect in the posterior segmental branch of the right upper lobe pulmonary artery. Small bilateral pleural effusions and dependent consolidation were noted representing consolidation or atelectasis. Patient is already appropriately covered with ceftriaxone for the same. I added incentive spirometer. The CT chest also noted nondisplaced fractures suggested at the left anterior 5th and 6th ribs. There was also additional cortical irregularity suggesting nondisplaced fracture of the anterior right 5th-7th ribs at the costochondral junction. Likely that these rib fractures were present on admission but not seen on admission chest x-ray. Check lower extremity venous Doppler to assess for DVT. Additionally noted small bilateral pleural effusions, most likely related to IV hydration that patient has received thus far. Will discontinue IV fluids today. Perform echocardiogram to estimate EF, assess for any right heart strain, Add PT OT assessment. Likely that patient will be optimized for surgery by Friday, August 23, 2024. In spite of the new discovery of PE, patient will likely benefit from surgical intervention given that she has significant weakness involving bilateral lower extremities. PDMP PDMP Reviewed: Not Reviewed Attestations 2 Medical Necessity Statement*: Heparin drip for PE, pending surgical intervention, newly discovered rib fractures and other findings as noted on CT chest above. Coding Level of Care Code Acute Code for Chg Fwd High MDM includes number and complexity of problems actively addressed during encounter, amount and/or complexity of data reviewed/ordered and described risk of complication, morbidity or mortality of management as documented Diagnoses Altered mental status R41.82 Right sided weakness R53.1 Rhabdomyolysis M62.82 Dehydration E86.0 Hypernatremia E87.0 Lumbar stenosis M48.061 Closed wedge compression fracture of L4 vertebra, initial encounter S32.040A Encounter type: initial encounter Fracture type: closed Fracture morphology: wedge compression Rib fracture S22.39XA Pulmonary embolism I26.99 Chest pain R07.9
--- NOTE | 2024-08-21 16:44 | ECG_ITS ---
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 Measurements Intervals [place] Rate: 91 P: 85 AL: 149 QRS: 8 QRSD: 76 T: 48 QT: 361 QTc: 445 Interpretive Statements SINUS RHYTHM WITH SINUS ARRHYTHMIA Compared to ECG 08/21/2024 16:20:14 No significant changes Electronically Signed On 08-21-2024 19:58:16 CDT by Becca Reed M.D. [email or web address]
[2024-08-21 17:14] VITALS: BP 174/92; PULSE 87; RESP 19; TEMP 36.6; O2SAT 96
[2024-08-21] MEDS: azithromycin 250 mg Tablet 500 MG PO (17:30)
[2024-08-21] MEDS: cefTRIAXone 1,000 mg SDV 1000 MG IVP (17:30)
[2024-08-21 17:35] LABS: Troponin 5 2HR 11.21 ng/L (0-10); Troponin 5 2HR Delta 1.21 ABS# (0-10)
[2024-08-21] MEDS: heparin 5,000 unit/mL INJ 1 mL IVP (18:08)
[2024-08-21] MEDS: heparin drip 25,000 UNIT/500 ML PREMIX 26 UNIT IV (18:09)
[2024-08-21 20:00] VITALS: BP 151/73; PULSE 110; RESP 16; TEMP 36.9; O2SAT 95
--- NOTE | 2024-08-21 20:53 | ECG_ITS ---
[facility]: 2024-[facility]21 Pat Name: Lynne Garcia Department: Room: 262 Gender: Female [place]: : 1955 Requested By: Milana Bonilla Order Number: [id number] Kathie MD: Hugo Coley M.D. Measurements Intervals [place] Rate: 109 P: 79 MI: 153 QRS: -6 QRSD: 81 T: 19 QT: 327 QTc: 440 Interpretive Statements SINUS TACHYCARDIA ABNORMAL RHYTHM ECG Compared to ECG 08/21/2024 17:43:46 Sinus rhythm no longer present Sinus arrhythmia no longer present Electronically Signed On 08-23-2024 17:55:19 CDT by Hugo Coley M.D. [email or web address]
[2024-08-21 21:37] LABS: Troponin 5 6HR 10.53 ng/L (0-10); Troponin 5 6HR Delta 0.53 ng/L (0-12)
[2024-08-22] VITALS (7 sets, daily range): BP systolic 99–171; BP diastolic 56–90; PULSE 75–110; RESP 17–19; TEMP 36.4–37; O2SAT 93–98
[2024-08-22] MEDS: hyDRALAzine 20 mg/mL INJ 1 mL 5 MG IVP (00:07)
[2024-08-22 01:00] LABS: Partial Thromboplastin Time 96.2 SECONDS (23.9-36.7)
[2024-08-22 03:40] LABS: Basophils # 0.1 10^3/uL (0.0-0.1); Basophils % 0.8 %; Eosinophils # 0.7 10^3/uL (0.0-0.8); Eosinophils % 7.2 %; Hematocrit 41.6 % (36-47); Lymphocytes # 1.7 10^3/uL (0.8-4.8); Lymphocytes % 18.6 %; Mean Corpuscular HGB Conc 33.4 g/dL (30-55); Mean Corpuscular Hemoglobin 28.7 pg (27-33); Mean Corpuscular Volume 85.8 fl (85-98); Mean Platelet Volume 11.8 fL (7.4-10.4); Neutrophils # 5.53 10^3/uL (1.8-7.7); Neutrophils % 59.8 %; Nucleated Red Blood Cells % 0 %; Platelet Count 287 10^3/cmm (157-399); Red Blood Count 4.85 10^6/uL (3.85-5.65); Red Cell Distribution Width 12.3 % (12.1-15.1); White Blood Count 9.25 10^3/uL (3.29-11.43)
[2024-08-22 04:03] LABS: Alanine Aminotransferase 47 U/L (0-33); Albumin Level 3.5 g/dL (3.5-5.2); Alkaline Phosphatase 147 U/L (35-105); Anion Gap 19.3 (5-19); Aspartate Amino Transferase 34 U/L (0-32); Blood Urea Nitrogen 7 mg/dL (8-23); Calcium 9.5 mg/dL (8.5-10.5); Carbon Dioxide 21 mmol/L (22-29); Chloride 99 mmol/L (98-107); Glomerular Filtration Rate 158.7 mL/min (90-130); Glucose 94 mg/dL (65-115); Osmolality Calculated 280 mOsm/kg (285-295); Potassium 3.3 mmol/L (3.5-5.1); Sodium 136 mmol/L (136-145); Total Bilirubin 0.3 mg/dL (0.15-1.2); Total Protein 6.5 g/dL (6.6-8.7)
[2024-08-22] MEDS: levothyroxine 50 mcg Tablet PO (05:06)
[2024-08-22 08:26] LABS: Partial Thromboplastin Time 60.7 SECONDS (23.9-36.7)
[2024-08-22] MEDS: metoprolol succinate ER (24 HR) 25 mg Tablet 50 MG PO (08:41)
[2024-08-22] MEDS: azithromycin 250 mg Tablet 500 MG PO (08:41)
[2024-08-22] MEDS: lactulose oral liq 20 gm/30 mL UDC 10 GM PO (08:42)
[2024-08-22] MEDS: amlodipine 5 mg Tablet PO (08:42)
--- NOTE | 2024-08-22 09:42 | P.PN_ITS ---
Subjective 2 Subjective: Patient with new diagnosis PE Vitals/I&O/Wt Last Vital Signs Temp 97.8 F 08/22/24 04:00 Pulse 95 08/22/24 04:00 Resp 17 08/22/24 04:00 BP 161/90 08/22/24 04:00 Pulse Ox 96 08/22/24 04:00 O2 Del Method Room Air 08/22/24 04:00 08/21/24 08/22/24 08/22/24 22:59 06:59 14:59 Intake Total 120 / 1750 189.367 / 1939.367 143 / 143 Output Total 1100 / 3100 Balance -980 / -1350 189.367 / -1160.633 143 / 143 Weight last 48 hrs Weight 195 lb Weight 200 lb 1.6 oz Physical Exam 2 Narrative: Continues to have weakness in bilateral lower extremities. And back pain Data 08/22/24 02:21 08/22/24 02:21 Micro: Microbiology 08/19/24 13:40 Gram Stain - Final Cerebrospinal Fluid CSF Culture - Preliminary Cryptococcal Antigen (CSF) - Final A&P Assessment and plan (1) L4 vertebral fracture: With recent diagnosis of pulmonary embolus with Eliquis until Thursday will plan to do surgery on Thursday. PDMP PDMP Reviewed: Not Reviewed Attestations 2 Medical Necessity Statement*: Per primary service Coding Level of Care Code Acute Code for Chg Fwd Diagnoses Closed wedge compression fracture of L4 vertebra, initial encounter S32.040A Encounter type: initial encounter Fracture type: closed Fracture morphology: wedge compression
[2024-08-22 10:59] LABS: THYROID PEROXIDASE ANTIBODIES 49 IU/mL (<9)
[2024-08-22 12:19] LABS: Quantiferon Mitogen 9.93 IU/mL; Quantiferon Nil 0.01 IU/mL; Quantiferon Plus TB1 0.01 IU/mL; Quantiferon TB Gold NEGATIVE (NEGATIVE)
[2024-08-22 14:31] LABS: COMPLEMENT, TOTAL (CH50) 60 U/mL (31-60)
--- NOTE | 2024-08-22 14:41 | PC.NURSE ---
IRONWORK[employer] APPRENTICE SHOP stated patient wast claiming to have big white bugs stuck to lower extremities. IRONWORKER APPRENTICE SHOP pulled off white stickers from EKG procedure, showed them to the patient and told patient it wasn't bugs.
--- NOTE | 2024-08-22 14:45 | USCV_ITS ---
Lynne Garcia Age: 69 Gender: F : 1955 Exam Date: 08/22/2024 14:47 Ordering Phys: Milana Bonilla MD Technologist: Raymond Barros [place] [facility] [place]: cp sob chf BP: 130 / 70 HR: 106 Rhythm: Sinus Technical Quality: Adequate MEASUREMENTS (Male / Female) Normal Values 2D ECHO LV Diastolic Diameter PLAX 3.9 cm 4.2 - 5.9 / 3.9 - 5.3 cm IVS Diastolic Thickness 1.3 cm 0.6 - 1.0 / 0.6 - 0.9 cm IVS Systolic Thickness 1.6 cm LVPW Diastolic Thickness 1.5 cm 0.6 - 1.0 / 0.6 - 0.9 cm LVPW Systolic Thickness 2.0 cm LVOT Diameter 2.6 cm LV Ejection Fraction 2D Teich 57.2 % LV Ejection Fraction MOD 4C 66.7 % LV Ejection Fraction MOD 2C 59.7 % LV Ejection Fraction 2C AL 60.7 % LA Diameter 4.9 cm RA Systolic Volume 4C AL 55.2 ml RA Systolic Volume 4C MOD 53.2 ml Aorta at Sinotubular Diameter 2.8 cm M-MODE LA Ao Ratio MM 1.2 AV Cusp Separation MM 2.5 cm DOPPLER AV Peak Velocity 138.0 cm/s LVOT Peak Velocity 97.0 cm/s AV Area Cont Eq vti 4.4 cm squared AV Area Cont Eq pk 3.9 cm squared MV Peak Velocity 106.0 cm/s MV Area PHT 3.2 cm squared Mitral E to A Ratio 0.7 TV Peak Velocity 163.5 cm/s TR Peak Velocity 173.0 cm/s TR Peak Gradient 12.0 mmHg TV Peak E Velocity 68.0 cm/s PV Peak Velocity 111.0 cm/s FINDINGS Left Ventricle Normal left ventricular size and systolic function, EF 67%. No regional wall motion abnormalities. Mild left ventricular hypertrophy. Grade I/IV diastolic dysfunction (abnormal relaxation filling pattern), normal to mildly elevated filling pressures. Right Ventricle The right ventricle is normal in size and function. Right Atrium Normal right atrial size. Left Atrium Mildly increased left atrial size. Mitral Valve No gross abnormalities noted Aortic Valve Thickened aortic valve. Tricuspid Valve No gross abnormalities noted Pulmonic Valve Pulmonic valve not well visualized. Pericardium No pericardial effusion. Aorta Normal aortic annulus size. IVC Inferior vena cava not visualized. CONCLUSIONS Normal left ventricular size and systolic function, EF 67%. No regional wall motion abnormalities. Mild left ventricular hypertrophy. Grade I/IV diastolic dysfunction (abnormal relaxation filling pattern), normal to mildly elevated filling pressures. Mildly increased left atrial size. Thickened aortic valve. There is no pericardial effusion. There are no intracardiac masses. Dr Hugo Coley MD FACC (Electronically Signed) Final Date: 22 Aug 2024 16:36 S
[2024-08-22 15:10] LABS: Partial Thromboplastin Time 63.6 SECONDS (23.9-36.7)
--- NOTE | 2024-08-22 15:45 | P.PN_ITS ---
Subjective 2 Subjective: Feels better today. She feels stronger in bilateral upper extremities. Right lower extremity continues to be weak, likely on 30 degrees of the bed. Left lower extremity has much better movement today. Medications: Reviewed: Yes Vitals/I&O/Wt Last Vital Signs Temp 98.6 F 08/22/24 13:57 Pulse 92 08/22/24 13:57 Resp 19 H 08/22/24 13:57 BP 131/80 08/22/24 13:57 Pulse Ox 93 08/22/24 13:57 O2 Del Method Room Air 08/22/24 13:57 08/22/24 08/22/24 08/22/24 06:59 14:59 22:59 Intake Total 189.367 / 1939.367 563 / 563 Output Total 1000 / 1000 Balance 189.367 / -1160.633 -437 / -437 Weight last 48 hrs Weight 88.451 kg Weight 90.764 kg Physical Exam 2 Narrative: General: No acute distress, AO x3 HEENT: PERRLA, pupils bilaterally equal and reactive, pallors not present Chest: Normal vesicular breath sounds, no added sounds, equal good air entry bilaterally CVS: S1-S2 regular, no murmurs, no tachycardia, no gallops, no rubs Abdomen: Soft, nontender, no organomegaly, bowel sounds present Neuro: No focal deficits, no facial deformity, AO x3, power 5/5 in all limbs Data 08/22/24 02:21 08/22/24 02:21 Micro: Microbiology 08/19/24 13:40 Gram Stain - Final Cerebrospinal Fluid CSF Culture - Final Cryptococcal Antigen (CSF) - Final A&P Assessment and plan (1) Altered mental status: (2) Right sided weakness: (3) Rhabdomyolysis: (4) Dehydration: (5) Hypernatremia: (6) Lumbar stenosis: (7) L4 vertebral fracture: (8) Rib fracture: (9) Pulmonary embolism: (10) Chest pain: Plan 69-year-old lady with very limited history available at this time presenting to the hospital after being down estimated about 5 days when she was last seen by family members. Patient is only able to remember that she was trying to go to the bathroom when she fell to the floor and has been unable to get up. Does not recall the events since then. Labs show evidence of leukocytosis, rhabdomyolysis with elevated CK, hypernatremia and transaminitis. Differentials at this time are broad and include underlying infection, lumbar stenosis with nerve compression/cauda equina resulting in acute lower extremity swelling, though this would not explain her current confusion. Differentials also include stroke given slightly worse weakness on the right side compared to the left, slurred speech and possible aphasia. Check urine drug screen, serum alcohol level, UA, urine culture and blood culture. Stat CT head and CTA of the head and neck ordered to evaluate for stroke. Patient is not within the tPA window. Lumbar spine MRI if CT head and CTA returned negative for stroke. Chest x-ray without any consolidation Pelvic x-ray negative for any acute fractures Ordered ultrasound of the liver given deranged LFTs, obtain hepatitis serology. Check TSH and ammonia levels Check tick panel given diffuse rash, uncertain cause at this time, may be sunburn, however this is less likely as patient was found to indoor For hyponatremia and rhabdomyolysis continue IV fluids as started in the ER, however change normal saline to half-normal saline given hypernatremia. Start ceftriaxone 1 g IV every 24 hours while undergoing infectious evaluation UA currently showing trace leukocyte Estrace DVT prophylaxis: Lovenox 40 mg subcutaneously Full code August 18, 2024 Patient is less confused today. Her daughter is at this time bedside and is able to frequently reorient the patient. Patient acknowledges that she is confused and having trouble recognizing an exact timeline of his symptoms. Daughter additionally reports that patient has been walking in the stooping posture for several months. She lives alone and has fallen several times however continues to insist to live alone. She lives bags of dog and cat. Off the floor and moves heavy things around the house typically. She is usually able to get herself off the ground after a fall, however this episode is different. She has never shown signs of confusion before. Ongoing evaluation for source of confusion and generalized weakness MRI of the lumbar spine performed this afternoon showed an acute L4 fracture with mild retropulsion and 30% loss of vertebral body height. Will consult Dr. Kaur from spine surgery. Ultrasound of the liver performed yesterday to assess for transaminitis raises concern for possible cholecystitis. Will obtain HIDA scan to further evaluate. General surgery has been consulted who recommends getting a CT abdomen of the pelvis with contrast to assess for diverticulitis. Potentially if patient is having underlying infection that could certainly explain her confusion. Blood cultures are currently awaited. Change antibiotic coverage from ceftriaxone 1 g IV every 24 hours to piperacillin/tazobactam to cover for potential intra-abdominal processes. Patient is complaining of diffuse pain and tenderness to palpation of multiple muscle groups therefore it is very hard for me to ascertain if the abdominal pain is part of her generalized tenderness or a localized process going on in the abdomen. Patient additionally reports a history of chronic intermittent high-dose steroid use which widens the differential to include atypical processes and opportunistic pathogens. Will perform lumbar puncture to assess for chronic meningitis such as cryptococcus as patient has had exposure to chicken coop's in the past. Additionally since she reports a history of histoplasmosis with ? Flares , will explore this further with histoplasma serology and urine antigen testing today. Check QuantiFERON screen.Check bartonella serology- has cat scratches over her arms B/L Take panel pending Consideration for dermatomyositis given diffuse rash, muscle tenderness and evidence of rhabdomyolysis. Though less likely that this would present for the first time at 61 years of age. TSH and ammonia levels within normal limits. Hepatitis serology negative August 19, 2024 Patient is less confused today. Mental status is inching closer to baseline, however speech continues to be slightly slurred. Patient still having tangential conversation but estimated only about 10% of the time compared to over 50% previously. Daughter reports that she is not yet at baseline. Hypernatremia remains resolved. Completed HIDA scan this morning which was negative for cholecystitis. CT of the abdomen and pelvis showed stercoral colitis, unlikely to be the explanation of altered mentation and current presentation. Lactulose to enable bowel movements added to her regimen today. Lumbar puncture remains pending. Blood culture is negative to date. Urine culture remains pending. Plan for L4 kyphoplasty on Thursday, once underlying infections are ruled out. Narrow antibiotics from Zosyn back to ceftriaxone. Continue IV fluids Recheck CK with a.m. labs. August 20, 2024 Patient's confusion continues to improve. More appropriate in conversation today. Sodium level at 137. Potassium at 2.9 today which was repleted this morning. Liver enzymes remain stable. Completed lumbar puncture yesterday. Noted to have a cell count of 6, mononuclear infiltrate, normal CSF glucose at 63, CSF total protein elevated at 106. Started on presumptive acyclovir yesterday which we will continue for now. Pending HSV 1 and 2 DNA and VZV PCR. Respiratory viral panel negative. Pending histoplasma and Coccidioides serology. Pending Bartonella serology. Improving bilateral upper extremity strength. Muscle tenderness much improved. Continues to have limited lower extremity strength, unable to lift legs more than 30 degrees. Still has some confusion as patient believes she participated with PT today, however they have not been in her room today. Alternately elevated CSF protein may be related to L4 lumbar fracture with nerve irritation. Planned for surgical intervention next week. August 21, 2024 Patient confusion continues to improve. She is able to have an appropriate conversation. Discontinue acyclovir. No convincing evidence of meningoencephalitis at this time. Addition of acyclovir over the last 48 hours did not appear to have made a meaningful difference to her symptomatology. Likely elevated protein on CSF with other normal parameters is most likely related to L4 acute fracture and resulting nerve compression. Patient complained of left-sided chest discomfort today which was worse compared to previous days. Also noted to be short of breath in conversation today which is new. EKG and baseline troponin were noted normal. CTA of the chest was ordered to evaluate for PE. And the study did show a small right-sided PE for which patient has been started on an anticoagulation with heparin drip. Was a small filling defect in the posterior segmental branch of the right upper lobe pulmonary artery. Small bilateral pleural effusions and dependent consolidation were noted representing consolidation or atelectasis. Patient is already appropriately covered with ceftriaxone for the same. I added incentive spirometer. The CT chest also noted nondisplaced fractures suggested at the left anterior 5th and 6th ribs. There was also additional cortical irregularity suggesting nondisplaced fracture of the anterior right 5th-7th ribs at the costochondral junction. Likely that these rib fractures were present on admission but not seen on admission chest x-ray. Check lower extremity venous Doppler to assess for DVT. Additionally noted small bilateral pleural effusions, most likely related to IV hydration that patient has received thus far. Will discontinue IV fluids today. Perform echocardiogram to estimate EF, assess for any right heart strain, Add PT OT assessment. Likely that patient will be optimized for surgery by Thursday, August 23, 2024. In spite of the new discovery of PE, patient will likely benefit from surgical intervention given that she has significant weakness involving bilateral lower extremities. August 22, 2024: Appears more alert and awake today, c/o dry mouth. C/o pain in the left chest correlating with known rib fractures now. On heparin Gtt for PE diagnosed yesterday. Add lidocaine patch over rib fracture site. She is currently awake, alert and oriented, better mentation compared to previous exams. Answers all orientation questions, remembers why she is in the hospital. This mornign nurses has reported hallucinations wherein she thought that the EKG stickers on her legs were bugs, states that she remebers this conversation, states that she had just woken up at that time. Currently having daily BM, denies any pain currently. No fever, hemodynamically stable. Out of bed ordered today with PT. Planned for surgical intervention on thursday given weakness RLE persisting. D/c abx after completing a 7 day course for stercoral colitis. pending echocardiogram PDMP PDMP Reviewed: Not Reviewed Attestations 2 Medical Necessity Statement*: planned surgical intervention 08/24 for lumbar fracture with neurological deficits Coding Level of Care Code Acute Code for [facility] Fwd Diagnoses Altered mental status R41.82 Right sided weakness R53.1 Rhabdomyolysis M62.82 Dehydration E86.0 Hypernatremia E87.0 Lumbar stenosis M48.061 Closed wedge compression fracture of L4 vertebra, initial encounter S32.040A Encounter type: initial encounter Fracture type: closed Fracture morphology: wedge compression Rib fracture S22.39XA Pulmonary embolism I26.99 Chest pain R07.9
--- NOTE | 2024-08-22 17:01 | USCV_ITS ---
Lynne Garcia Age: 69 Gender: F : 1955 Exam Date: 08/22/2024 10:13 Ordering Phys: Milana Bonilla MD Technologist: [facility] [place]am [place] [facility] [place] Indication: newly discovered PE HISTORY: Patient has history of. Pulmonary embolism. PROCEDURES: Venous duplex imaging was performed in bilateral lower extremities. The following venous structures were evaluated: common femoral vein, profunda vein, proximal portion of the greater saphenous vein, superficial femoral vein, and the popliteal vein. In addition, the posterior tibial and peroneal trunk were evaluated. FINDINGS: No evidence of DVT seen in any vessel visualized at this time. CONCLUSIONS No evidence of right lower extremity DVT. No evidence of left lower extremity DVT. Ford Cheney MD (Electronically Signed) Final Date: 22 Aug 2024 11:00 S
[2024-08-22] MEDS: heparin drip 25,000 UNIT/500 ML PREMIX 20 UNIT IV (17:26)
[2024-08-22] MEDS: cefTRIAXone 1,000 mg SDV 1000 MG IVP (17:28)
[2024-08-22] MEDS: metroNIDAZOLE 500 MG Tablet PO (18:04)
[2024-08-22 21:35] LABS: HSV 1 DNA Not Detected (Not Detected); HSV 2 DNA Not Detected (Not Detected); HSV Source Results Below
[2024-08-23] VITALS (7 sets, daily range): BP systolic 112–164; BP diastolic 66–98; PULSE 74–88; RESP 15–19; TEMP 36.3–36.8; O2SAT 92–97
[2024-08-23 02:42] LABS: Basophils # 0.1 10^3/uL (0.0-0.1); Basophils % 1.1 %; Eosinophils # 0.9 10^3/uL (0.0-0.8); Eosinophils % 9.5 %; Hematocrit 41.3 % (36-47); Lymphocytes # 2.3 10^3/uL (0.8-4.8); Lymphocytes % 24.2 %; Mean Corpuscular HGB Conc 33.4 g/dL (30-55); Mean Corpuscular Hemoglobin 28.9 pg (27-33); Mean Corpuscular Volume 86.6 fl (85-98); Mean Platelet Volume 10.8 fL (7.4-10.4); Monocytes # 1.2 10^3/uL (0.2-0.9); Monocytes % 12.5 %; Neutrophils # 4.78 10^3/uL (1.8-7.7); Neutrophils % 50.2 %; Nucleated Red Blood Cells % 0 %; Platelet Count 279 10^3/cmm (157-399); Red Blood Count 4.77 10^6/uL (3.85-5.65); Red Cell Distribution Width 12.4 % (12.1-15.1); White Blood Count 9.51 10^3/uL (3.29-11.43)
[2024-08-23 03:03] LABS: Alanine Aminotransferase 41 U/L (0-33); Albumin Level 3.5 g/dL (3.5-5.2); Alkaline Phosphatase 147 U/L (35-105); Anion Gap 15.8 (5-19); Aspartate Amino Transferase 30 U/L (0-32); Blood Urea Nitrogen 11 mg/dL (8-23); Calcium 9.8 mg/dL (8.5-10.5); Carbon Dioxide 23 mmol/L (22-29); Chloride 102 mmol/L (98-107); Creatinine Clr Calc Pharmacy 78.3279; Glomerular Filtration Rate 99.4 mL/min (90-130); Glucose 93 mg/dL (65-115); Osmolality Calculated 283 mOsm/kg (285-295); Potassium 3.8 mmol/L (3.5-5.1); Sodium 137 mmol/L (136-145); Total Bilirubin 0.4 mg/dL (0.15-1.2); Total Protein 6.5 g/dL (6.6-8.7)
[2024-08-23 03:04] LABS: Partial Thromboplastin Time 69.2 SECONDS (23.9-36.7)
[2024-08-23 03:49] LABS: CENTROMERE B ANTIBODY <1.0 NEG AI (<1.0 NEG); JO-1 ANTIBODY <1.0 NEG AI (<1.0 NEG); RNP ANTIBODY <1.0 NEG AI (<1.0 NEG); SCL-70 ANTIBODY <1.0 NEG AI (<1.0 NEG); SJOGREN'S ANTIBODY (SS-A) <1.0 NEG AI (<1.0 NEG); SM ANTIBODY <1.0 NEG AI (<1.0 NEG); SS-B <1.0 NEG AI (<1.0 NEG)
[2024-08-23] MEDS: levothyroxine 50 mcg Tablet PO (05:33)
[2024-08-23 09:19] LABS: Partial Thromboplastin Time 70.9 SECONDS (23.9-36.7)
[2024-08-23] MEDS: azithromycin 250 mg Tablet 500 MG PO (09:58)
[2024-08-23] MEDS: metoprolol succinate ER (24 HR) 25 mg Tablet 50 MG PO (09:58)
[2024-08-23] MEDS: lactulose oral liq 20 gm/30 mL UDC 10 GM PO (09:58)
[2024-08-23] MEDS: lidocaine 5% Patch 1 PATCH TOPICAL ×2 (10:01→20:40)
[2024-08-23] MEDS: amlodipine 5 mg Tablet PO (10:02)
[2024-08-23] MEDS: metroNIDAZOLE 500 MG Tablet PO ×2 (10:02→17:32)
--- NOTE | 2024-08-23 11:06 | PC.NURSE ---
This nurse typed weight in wrong when scanning new bag 08/22/2024. Weight was put in at 95 should have been 92. There has not been any change in the dose since 08/22/2024 0730
--- NOTE | 2024-08-23 17:06 | P.PN_ITS ---
Subjective 2 Subjective: Patient was seen this morning, currently alert oriented x 3, following all commands, denies any fevers, no chills, no cough, no abdominal pain, no chest pain, no shortness of breath, no lightheadedness, no dizziness, we discussed her hospitalization, she voices understanding, all questions answered Vitals/I&O/Wt Last Vital Signs Temp 97.5 F L 08/23/24 11:06 Pulse 86 08/23/24 11:06 Resp 15 08/23/24 11:06 BP 112/68 08/23/24 11:06 Pulse Ox 96 08/23/24 11:06 O2 Del Method Room Air 08/23/24 11:06 08/23/24 08/23/24 08/23/24 06:59 14:59 22:59 Intake Total 194.333 / 1544.966 348.667 / 348.667 Output Total 500 / 2100 Balance -305.667 / -555.034 348.667 / 348.667 Weight last 48 hrs Weight 87.997 kg Weight 88.451 kg Physical Exam 2 Const: COMMON NORMALS: no acute distress and patient oriented x3 Resp: COMMON NORMALS: normal respiratory effort, No retractions, No use of accessory muscles and clear to auscultation bilaterally AUSCULTATION: clear to auscultation bilaterally Cardio: COMMON NORMALS: regular rate, regular rhythm, S1 normal heart sound present and S2 normal heart sound present RATE: regular rate RHYTHM: r egular rhythm HEART SOUNDS: S1 normal heart sound present and S2 normal heart sound present GI: COMMON NORMALS: Normal to inspection, nondistended, normoactive bowel sounds present and non-tender Extremity: COMMON NORMALS: no pedal edema Neuro: COMMON NORMALS: patient oriented x3 Psych: COMMON NORMALS: mental status grossly normal Data 08/23/24 02:30 08/23/24 02:30 Micro: Microbiology 08/17/24 18:13 Blood Culture - Final Blood NO GROWTH AFTER 5 DAYS 08/17/24 18:07 Blood Culture - Final Blood NO GROWTH AFTER 5 DAYS 08/19/24 13:40 Gram Stain - Final Cerebrospinal Fluid CSF Culture - Final Cryptococcal Antigen (CSF) - Final A&P Assessment and plan (1) Altered mental status: (2) Right sided weakness: (3) Rhabdomyolysis: (4) Dehydration: (5) Hypernatremia: (6) Lumbar stenosis: (7) L4 vertebral fracture: (8) Rib fracture: (9) Pulmonary embolism: (10) Chest pain: Plan Altered mental status, currently alert oriented x 3, following all commands -Was found down at home for approximately 5 days - CT head no acute findings - CTA head and neck no acute findings - Lumbar MRI no acute findings - LP studies so far no acute findings - CSF studies no growth - Blood cultures no growth - Completed 48 hours of acyclovir Rhabdomyolysis, resolving Pulmonary embolism 1. Small filling defect within a posterior segmental branch of the right upper lobe pulmonary artery concerning for small pulmonary embolism. No additional pulmonary emboli are seen. No evidence of right heart strain. - Currently on heparin drip - Will transition to Eliquis on discharge Rib fractures Nondisplaced fractures suggested at the left anterior 5th and 6th ribs. No pneumothorax. - Incentive spirometer, flutter valve Small bilateral pleural effusions Diastolic dysfunction CONCLUSIONS Normal left ventricular size and systolic function, EF 67%. No regional wall motion abnormalities. Mild left ventricular hypertrophy. Grade I/IV diastolic dysfunction (abnormal relaxation filling pattern), normal to mildly elevated filling pressures. Mildly increased left atrial size. Thickened aortic valve. There is no pericardial effusion. There are no intracardiac masses stecoral colitis, on IV antibiotics Concern for pneumonia CT chest minimal nonspecific dependent consolidation in the lung bases which could represent infiltrate or atelectasis. Continue IV antibiotics L4 lumbar fracture. - Plans on kyphoplasty tomorrow, n.p.o. midnight PDMP PDMP Reviewed: Not Reviewed Attestations 2 Medical Necessity Statement*: Patient requires hospitalization for altered mental status, pulmonary embolism, L4 lumbar fracture Diagnoses Altered mental status R41.82 Right sided weakness R53.1 Rhabdomyolysis M62.82 Dehydration E86.0 Hypernatremia E87.0 Lumbar stenosis M48.061 Closed wedge compression fracture of L4 vertebra, initial encounter S32.040A Encounter type: initial encounter Fracture morphology: wedge compression Fracture type: closed Rib fracture S22.39XA Pulmonary embolism I26.99 Chest pain R07.9
[2024-08-23] MEDS: cefTRIAXone 1,000 mg SDV 1000 MG IVP (17:32)
[2024-08-23] MEDS: heparin drip 25,000 UNIT/500 ML PREMIX 20 UNIT IV (17:33)
[2024-08-23 17:44] LABS: Histoplasma capsulatum H Ab NEGATIVE; Histoplasma capsulatum M Ab NEGATIVE
[2024-08-23 21:18] LABS: Bartonella Henselae IgG AB NEGATIVE; Bartonella Henselae IgM AB NEGATIVE; Bartonella Quintana IgG AB NEGATIVE; Bartonella Quintana IgM AB NEGATIVE
[2024-08-23 21:18] LABS: Lyme Disease AB (IGG),IBL NO BANDS DETECTED; Lyme Disease AB (IGM), IBL NO BANDS DETECTED
[2024-08-24] VITALS (21 sets, daily range): BP systolic 96–148; BP diastolic 58–84; PULSE 72–98; RESP 16–20; TEMP 36.1–37.1; O2SAT 88–97
[2024-08-24] MEDS: levothyroxine 50 mcg Tablet PO (05:00)
[2024-08-24 05:46] LABS: Basophils # 0.1 10^3/uL (0.0-0.1); Basophils % 0.7 %; Eosinophils # 0.6 10^3/uL (0.0-0.8); Eosinophils % 8.3 %; Hematocrit 40.8 % (36-47); Lymphocytes # 1.6 10^3/uL (0.8-4.8); Lymphocytes % 20.9 %; Mean Corpuscular HGB Conc 32.8 g/dL (30-55); Mean Corpuscular Hemoglobin 28.6 pg (27-33); Mean Corpuscular Volume 87.2 fl (85-98); Mean Platelet Volume 11.1 fL (7.4-10.4); Monocytes # 0.9 10^3/uL (0.2-0.9); Monocytes % 12.2 %; Neutrophils # 4.13 10^3/uL (1.8-7.7); Neutrophils % 55.5 %; Nucleated Red Blood Cells % 0 %; Platelet Count 262 10^3/cmm (157-399); Red Blood Count 4.68 10^6/uL (3.85-5.65); Red Cell Distribution Width 12.5 % (12.1-15.1); White Blood Count 7.45 10^3/uL (3.29-11.43)
--- NOTE | 2024-08-24 06:07 | ANES.PREANE2 ---
Pre-Anesthetic Assessment Height/Weight: Height 5 ft 8 in Weight 194 lb Temp Pulse Resp BP Pulse Ox O2 Del Method 98.1 F 92 20 H 148/82 93 Room Air 08/24/24 04:48 08/24/24 04:48 08/24/24 04:48 08/24/24 04:48 08/24/24 04:48 08/23/24 15:38 Preop Diagnosis: spinal stenosis Operation Date: 08/22/24 12:15 Proposed Procedures p Kyphoplasty(Not Applicable) - Benito Kaur, DO s Lumbar Spine Decompression(Not Applicable) - Benito Kaur, DO Operation Date: 08/24/24 07:35 Proposed Procedures p Kyphoplasty L4(Not Applicable) - Benito Kaur, DO s Lumbar Spine Decompression L3-L5(Not Applicable) - Benito Kaur DO Was Beta Dionne taken within 24 hours: Yes Was Clonidine taken within 24 hours: N/A Last intake: Intake Last Liquid Date 08/23/24 Last Liquid Time 23:59 Last Solid Date 08/23/24 Last Solid Time 23:59 Social No alcohol and No tobacco Exam alert, oriented x 3, clear to auscultation bilaterally and regular rate & rhythm Airway Submandibular: within normal limits Cervical ROM: within normal limits Mallampati: Class II Dentition: full Anesthetic Plan ASA status: 3 Anesthesia: General Other: Patient initially admitted 08/17/2024 5 with L4 vertebral fracture and rhabdomyolysis after being found down by her family after nearly 5 days. Patient much improved since hospitalization, alert and oriented x 3. No prior issues with anesthesia NPO since yesterday evening Carotid Doppler performed which was normal Patient was found to have a small PE on CT scan. Was placed on heparin drip during hospitalization Nondisplaced rib fractures of 5th and 6th ribs Echo performed with a EF of 67%. No right heart failure noted Hypertension on metoprolol Patient reports that she has histoplasmosis which caused her to have restrictive lung disease Labs reviewed today and acceptable for procedure EKG showing sinus tachycardia Plan for GETA Medications/Allergies Home Medications ?Medication ?Instructions ?Recorded ?Confirmed ?Last Taken ?Type acetaminophen 300 mg-codeine 30 mg 1 tab PO Q8H PRN Pain 08/17/24 08/17/24 Unknown History tablet cyclobenzaprine 10 mg tablet 10 mg PO BID PRN Spasms 08/17/24 08/17/24 Unknown History fluoxetine 20 mg capsule (Prozac) 20 mg PO DAILY 08/17/24 08/17/24 Unknown History hydrochlorothiazide 25 mg tablet 25 mg PO QAM 08/17/24 08/17/24 Unknown History levothyroxine 50 mcg tablet 50 mcg PO QAM 08/17/24 08/17/24 Unknown History metoprolol succinate 25 mg 25 mg PO DAILY 08/17/24 08/17/24 Unknown History tablet,extended release 24 hr rosuvastatin 20 mg tablet 20 mg PO DAILY 08/17/24 08/17/24 Unknown History triamcinolone acetonide 0.1 % 1 applic topical BID PRN Skin 08/17/24 08/17/24 Unknown History topical cream Irritation Allergies Allergy/AdvReac Type Severity Reaction Status Date / Time levofloxacin (From [facility]) Allergy Unknown Verified 08/17/24 14:07 lisinopril Allergy ALGY-Swell Verified 08/17/24 21:14 Lip/Tongue/Throat morphine Allergy Unknown Verified 08/17/24 14:07 Current Medications Generic Name Dose Route Start Last Admin Trade Name Freq PRN Reason Stop Dose Admin Acetaminophen 650 mg 08/17/24 17:31 08/19/24 09:11 Acetaminophen 325 Mg Tablet PO 650 mg Q6H PRN Administration Mild/Mod Pain Or Temp >/= 101 Amlodipine Besylate 5 mg 08/19/24 09:00 08/23/24 10:02 Amlodipine 5 Mg Tablet PO 5 mg DAILY HUNTER Administration Azithromycin 500 mg 08/21/24 17:00 08/23/24 09:58 Azithromycin 250 Mg Tablet PO 500 mg DAILY HUNTER Administration Protocol Ceftriaxone Sodium 1,000 mg 08/19/24 16:15 08/23/24 17:32 Ceftriaxone 1,000 Mg Sdv IVP 1,000 mg Q24H HUNTER Administration Protocol Hydralazine HCl 5 mg 08/19/24 08:01 08/22/24 00:07 Hydralazine 20 Mg/Ml Inj 1 Ml IVP 5 mg Q4H PRN Administration SBP More than 160 mmhg Heparin Sodium/Sodium Chloride 25,000 unit in 500 mls @ 0 mls/hr 08/21/24 17:15 08/23/24 21:58 Heparin Drip IV 0 unit/kg/hr CONT HUNTER 0 mls/hr Protocol Titration Per Protocol Lactulose 10 gm 08/19/24 09:00 08/23/24 09:58 Lactulose Oral Liq 20 Gm/30 Ml Udc PO 10 gm DAILY HUNTER Administration Levothyroxine Sodium 50 mcg 08/18/24 06:00 08/24/24 05:00 Levothyroxine 50 Mcg Tablet PO 50 mcg QAM HUNTER Administration Lidocaine 1 patch 08/22/24 21:00 08/23/24 20:40 Lidocaine 5% Patch TOPICAL 1 patch [id number] HUNTER Administration Metoprolol Succinate 50 mg 08/22/24 09:00 08/23/24 09:58 Metoprolol Succinate Er (24 Hr) 25 Mg Tablet PO 50 mg DAILY HUNTER Administration Metronidazole 500 mg 08/22/24 18:00 08/23/24 17:32 Metronidazole 500 Mg Tablet PO 08/27/24 17:59 500 mg BID HUNTER Administration Data Anesthesia 08/24/24 05:12 08/24/24 05:12 Short CBC 08/23/24 08/24/24 Range/Units 02:30 05:12 WBC 9.51 7.45 (3.29-11.43) 10^3/uL Hgb 13.80 13.40 (11.27-16.99) g/dL Hct 41.3 40.8 (36-47) % MCV 86.6 87.2 (85-98) fl Plt Count 279 262 (157-399) 10^3/cmm Neut % (Auto) 50.2 55.5 % Neut # (Auto) 4.78 4.13 (1.8-7.7) 10^3/uL BMP 08/23/24 02:30 Sodium 137 Potassium 3.8 Chloride 102 Carbon Dioxide 23 BUN 11 Creatinine 0.6 Glucose 93 Calcium 9.8 Liver Function 08/23/24 Range/Units 02:30 Total Bilirubin 0.4 (0.15-1.2) mg/dL AST 30 (0-32) U/L ALT 41 H (0-33) U/L Alkaline Phosphatase 147 H (35-105) U/L Albumin 3.5 (3.5-5.2) g/dL Coags 08/22/24 08/22/24 08/22/24 07:58 14:30 19:47 APTT 60.7 H 63.6 H 63.0 H 08/23/24 08/23/24 02:30 08:47 APTT 69.2 H 70.9 H Cardiac Studies: Echocardiogram 08/22/24
--- NOTE | 2024-08-24 06:11 | W.PM.OPSUD ---
Surgery/Procedure H&P Update DATE OF PROCEDURE: August 24, 2024 DATE H&P PERFORMED: 08/23/24 H&P UPDATE INFORMATION: I have reviewed H&P completed within last 30 days, I have examined patient prior to procedure and No changes to prior documentation PLANNED PROCEDURE: Operation Date: 08/22/24 12:15 Proposed Procedures p Kyphoplasty(Not Applicable) - Benito Kaur DO s Lumbar Spine Decompression(Not Applicable) - Benito Kaur DO Operation Date: 08/24/24 07:35 Proposed Procedures p Kyphoplasty L4(Not Applicable) - Benito Kaur DO s Lumbar Spine Decompression L3-L5(Not Applicable) - Benito Kaur DO
[2024-08-24 06:12] LABS: Alanine Aminotransferase 33 U/L (0-33); Albumin Level 3.3 g/dL (3.5-5.2); Alkaline Phosphatase 142 U/L (35-105); Anion Gap 15.4 (5-19); Aspartate Amino Transferase 23 U/L (0-32); Blood Urea Nitrogen 13 mg/dL (8-23); Calcium 9.4 mg/dL (8.5-10.5); Carbon Dioxide 22 mmol/L (22-29); Chloride 103 mmol/L (98-107); Globulin 2.8 g/dL (1.3-4.6); Glomerular Filtration Rate 99.4 mL/min (90-130); Glucose 94 mg/dL (65-115); Osmolality Calculated 284 mOsm/kg (285-295); Phosphorus 2.9 mg/dL (2.5-4.5); Potassium 3.4 mmol/L (3.5-5.1); Sodium 137 mmol/L (136-145); Total Bilirubin 0.3 mg/dL (0.15-1.2); Total Protein 6.1 g/dL (6.6-8.7)
[2024-08-24] MEDS: sodium chloride 0.9% 1,000 ML 30 ML IV (07:00)
--- NOTE | 2024-08-24 07:51 | PC.OT ---
OT TX SESSION HELD TODAY DUE TO SCHEDULED BACK SURGERY
[2024-08-24] MEDS: ceFAZolin 2,000 mg SDV 2000 MG IVP (08:00)
[2024-08-24] MEDS: lidocaine-epi 1% 20 mL INJ INJECTION (08:46)
--- NOTE | 2024-08-24 09:36 | PM.OP ---
Operative Report Date of procedure: August 24, 2024 Pre-op diagnosis: Lumbar stenosis with neurogenic claudication L4 wedge osteoporotic compression fracture Procedure done: 1. L4 kyphoplasty 2. L3/4 laminectomy with partial facetectomies 3. L4/5 laminectomy with partial facetectomies Surgeon: Benito Kaur DO Estimated blood loss (mL): 20 Procedure: 1. L4 kyphoplasty 2. L3/4 laminectomy with partial facetectomies 3. L4/5 laminectomy with partial facetectomies Patient brought the op suite after undergoing anesthesia was placed in the prone position. All his impingement well-padded. Patient's prepped draped also fashion. Biplanar C-arm was brought brought in. AP lateral fluoroscopy was used to identify the L4 compression fracture. Attention was first brought to the pedicle at L4 on the left. Skin incisions made over the left lateral pedicle. Awl was inserted into the pedicle drill was then inserted into the vertebral body. Then the drill was removed and the balloon was inserted. Balloon was inflated and then deflated. The cement was then injected into the vertebral body. I had good fill and is confirmed under C-arm guidance. Next attention was brought to doing the laminectomies A skin incision is made over the L4/5 level. This is confirmed under c-arm guidance. A series of dilators are passed and the tubular retractor is docked on the L4 lamina. A bovie is used to clear the soft tissue off the lamina and the L 4/5 facet joint. A high speed magno is then used to perform the laminectomy and take down the medial aspect of the L 4/5 facet joint. A kerrison rongeure was then used to take down the remaining lamina and smooth the edged of the laminectomy up to the point where the ligamentum flavum attaches. Attention was then brought to the medial aspect of the facet joint. The remaining medial aspect of the superior and inferior aspect of the facet joint were taken down with the kerrison from the pedicle of L4 to L 5. The facet joint had significant hypertrophy. Attention was then brought to the Ligamentum Flavum. The ligament was taken down from the lamina of L4 to L5 and out medially to the remaining facet joint. The ligament was thick. The dura was then exposed. The dura was in good repair. The L4 nerve was then traced with a curette out the L4/5 foramen and found to be adequately decompressed. The L5 nerve was traced with a curette around the L5 pedicle. The lateral recess was opened with a kerrison helping to further decompress the L5 nerve. The tubular retractor was then tilted to the contralateral side. The bovie was used to take down the soft tissue on the spinous process. The high speed magno was used to take down the spinous process and then the contralateral lamina of L4. The kerrison rongeur was used to take down the remaining lamina to the point where the ligamentum flavum attached and the ligamentum flavum was taken down from L4 to L5. The kerrison rongeur was then used to reach across and take down the medial aspect of the contralateral L4/5 facet joint.The currete was used to trace the contralateral L5 nerve out the L4/5 foramen to make sure it was decompressed adequatesly and the L5 was traced around the L5 pedicle. The lateral recess was opened further with the kerrison to ensure the L5 is adequately decompressed. Wound is then irrigated copiously with saline and surgiflo is used to stop any bleeding. The tubular retractor is removed and the A skin incision is made over the L3/4 level. This is confirmed under c-arm guidance. A series of dilators are passed and the tubular retractor is docked on the L3 lamina. A bovie is used to clear the soft tissue off the lamina and the L 3/4 facet joint. A high speed magno is then used to perform the laminectomy and take down the medial aspect of the L 3/4 facet joint. A kerrison rongeure was then used to take down the remaining lamina and smooth the edged of the laminectomy up to the point where the ligamentum flavum attaches. Attention was then brought to the medial aspect of the facet joint. The remaining medial aspect of the superior and inferior aspect of the facet joint were taken down with the kerrison from the pedicle of L3 to L 4. The facet joint had significant hypertrophy. Attention was then brought to the Ligamentum Flavum. The ligament was taken down from the lamina of L3 to L4 and out medially to the remaining facet joint. The ligament was thick. The dura was then exposed. The dura was in good repair. The L3 nerve was then traced with a curette out the L3/4 foramen and found to be adequately decompressed. The L4 nerve was traced with a curette around the L4 pedicle. The lateral recess was opened with a kerrison helping to further decompress the L4 nerve. The tubular retractor was then tilted to the contralateral side. The bovie was used to take down the soft tissue on the spinous process. The high speed magno was used to take down the spinous process and then the contralateral lamina of L3. The kerrison rongeur was used to take down the remaining lamina to the point where the ligamentum flavum attached and the ligamentum flavum was taken down from L3 to L4. The kerrison rongeur was then used to reach across and take down the medial aspect of the contralateral L3/4 facet joint.The currete was used to trace the contralateral L3 nerve out the L3/4 foramen to make sure it was decompressed adequatesly and the L4 was traced around the L4 pedicle. The lateral recess was opened further with the kerrison to ensure the L4 is adequately decompressed. Wound is then irrigated copiously with saline and surgiflo is used to stop any bleeding. The tubular retractor is removed and thewound is closed with vicryl and monocryl suture. Glue is then used to protect the wound. A sterile dressing is then placed. Patient was then placed in the supine position and transferred to the PACU in stable condition.
--- NOTE | 2024-08-24 10:45 | ANE.PACU2 ---
Inpatient post-anesthesia follow up: Airway intact: Yes Vital signs: Temperature 98.3 F Pulse Rate 98 Respiratory Rate 20 Blood Pressure 96/58 Pulse Oximetry 92 Oxygen Delivery Me thod Room Air Oxygen Flow Rate 6 Fraction of Inspir ed Oxygen Hydration adequate: Yes Nausea and vomiting: No Pain level: 1 Mental status: Baseline
--- NOTE | 2024-08-24 12:12 | SC_ITS ---
WS: [id number] C-arm fluoroscopy views of the lumbar spine for kyphoplasty, 08/24/2024 Clinical Data: KYPHOPLASTY Comparison: None. Findings: Dr. Kaur performed a lumbar kyphoplasty SC/C-arm FL for Kyphoplasty Impression: Lumbar kyphoplasty
--- NOTE | 2024-08-24 12:13 | XR_ITS ---
WS: [id number] Lumbar spine, C-arm fluoroscopy views, 08/24/2024 Clinical Data: ANA PICS Comparison: Lumbar spine, 01/24/2015 Findings: Dr. Kaur performed a lumbar decompression. XR/XR lumbar spine 2-3V* [id number] Impression: Lumbar decompression.
[2024-08-24] MEDS: acetaminophen 325 mg Tablet 650 MG PO (12:55)
[2024-08-24 13:15] LABS: DNA AB (DS) CRITHIDIA,IFA NEGATIVE (NEGATIVE)
[2024-08-24 13:40] LABS: SARS Covid-2 Antigen Negative (Negative)
--- NOTE | 2024-08-24 13:42 | PC.SOCIAL ---
IMM updated IMM dated and initialed, Copy given to patient and copy placed in chart
--- NOTE | 2024-08-24 15:15 | P.PN_ITS ---
Subjective 2 Subjective: patient was seen in post op recovery, she is alert to person, not to place, not to time, under the affect of anesthetic patient was seen on [facility], she is aaoX2, follows commands, no slurring of speech, no focal weakness, no seizure like symptoms, no headache, no neck pain, no stiffness, she is sitting up in a chair, ambulated by nursing staff, she displays paranoid delusions, believes i am conspiring against her with a hidden force, then tells me they are other people in the room, she doesnt remember having surgery this morning Vitals/I&O/Wt Last Vital Signs Temp 98.3 F 08/24/24 12:50 Pulse 98 08/24/24 12:50 Resp 20 H 08/24/24 12:50 BP 96/58 08/24/24 12:50 Pulse Ox 92 08/24/24 12:50 O2 Del Method Room Air 08/24/24 12:50 O2 Flow Rate 6 08/24/24 09:46 08/24/24 08/24/24 08/24/24 06:59 14:59 22:59 Intake Total 1141.667 / 1141.667 Output Total 210 / 210 Balance 931.667 / 931.667 Weight last 48 hrs Weight 87.997 kg Weight 87.997 kg Physical Exam 2 Const: COMMON NORMALS: no acute distress ORIENTATION/CONSCIOUSNESS: Yes awake, Yes oriented to person, Yes oriented to place and Yes confused; not oriented to time Eye: COMMON NORMALS: Equal, round and reactive pupils present PUPIL: Yes Equal, round and reactive pupils present Resp: COMMON NORMALS: normal respiratory effort, No retractions, No use of accessory muscles and clear to auscultation bilaterally AUSCULTATION: clear to auscultation bilaterally Cardio: COMMON NORMALS: regular rate, regular rhythm, S1 normal heart sound present and S2 normal heart sound present RATE: regular rate RHYTHM: r egular rhythm HEART SOUNDS: S1 normal heart sound present and S2 normal heart sound present GI: COMMON NORMALS: Normal to inspection, nondistended, normoactive bowel sounds present and non-tender Extremity: COMMON NORMALS: no pedal edema Neuro: COMMON NORMALS: CN's II-XII intact bilaterally, moves all extremities and no focal motor deficits SENSORIUM/ORIENTATION: Yes oriented to person, Yes oriented to place and No oriented to time Data 08/24/24 05:12 08/24/24 05:12 Micro: Microbiology 08/23/24 02:30 Cryptococcal Antigen (Serum) - Final Blood A&P Assessment and plan (1) Altered mental status: (2) Right sided weakness: (3) Rhabdomyolysis: (4) Dehydration: (5) Hypernatremia: (6) Lumbar stenosis: (7) L4 vertebral fracture: (8) Rib fracture: (9) Pulmonary embolism: (10) Chest pain: Plan Postoperative confusion -likely anesthetic effect -hallucinations and paranoid delusion -will monitor mentation closely -neurocheck -nih stroke scale Altered mental status, -Was found down at home for approximately 5 days - CT head no acute findings - CTA head and neck no acute findings - Lumbar MRI no acute findings - LP studies so far no acute findings - CSF studies no growth - Blood cultures no growth - Completed 48 hours of acyclovir Rhabdomyolysis, resolving Pulmonary embolism 1. Small filling defect within a posterior segmental branch of the right upper lobe pulmonary artery concerning for small pulmonary embolism. No additional pulmonary emboli are seen. No evidence of right heart strain. - Currently off heparin drip, s/p surgical intervention, spoke to dr. meza recommended to hold anticoagulation for 24 hours postop, kyphoplasty - Will transition to Eliquis on discharge Rib fractures Nondisplaced fractures suggested at the left anterior 5th and 6th ribs. No pneumothorax. - Incentive spirometer, flutter valve Small bilateral pleural effusions Diastolic dysfunction CONCLUSIONS Normal left ventricular size and systolic function, EF 67%. No regional wall motion abnormalities. Mild left ventricular hypertrophy. Grade I/IV diastolic dysfunction (abnormal relaxation filling pattern), normal to mildly elevated filling pressures. Mildly increased left atrial size. Thickened aortic valve. There is no pericardial effusion. There are no intracardiac masses stecoral colitis, on IV antibiotics Concern for pneumonia CT chest minimal nonspecific dependent consolidation in the lung bases which could represent infiltrate or atelectasis. Continue IV antibiotics L4 lumbar fracture. - s/p Kyphoplasty -pt/ot PDMP PDMP Reviewed: Not Reviewed Attestations 2 Medical Necessity Statement*: patient requires hospitalization for postoperative confusion Diagnoses Altered mental status R41.82 Right sided weakness R53.1 Rhabdomyolysis M62.82 Dehydration E86.0 Hypernatremia E87.0 Lumbar stenosis M48.061 Closed wedge compression fracture of L4 vertebra, initial encounter S32.040A Encounter type: initial encounter Fracture type: closed Fracture morphology: wedge compression Rib fracture S22.39XA Pulmonary embolism I26.99 Chest pain R07.9
[2024-08-24] MEDS: docusate sodium 100 mg Capsule PO (17:01)
[2024-08-24] MEDS: metroNIDAZOLE 500 MG Tablet PO (17:01)
[2024-08-24] MEDS: cefTRIAXone 1,000 mg SDV 1000 MG IVP (17:01)
[2024-08-24 19:03] LABS: ANA SCREEN, IFA POSITIVE (NEGATIVE)
[2024-08-24 20:18] LABS: E. Chaffeensis AB IGG <1:64; E. Chaffeensis AB IGM <1:20
--- NOTE | 2024-08-24 23:11 | PC.NURSE ---
patient in bed resting with eyes closed. tis nurse in room to pass 2100 meds, patient had a L4 compression fracture fixed this morning, her lidocaine patch was not applied due to her being out of her room, nurse charted lidocaine patch not given and patch already off of patient. will be applied on morning med rounds on dayshift.
[2024-08-25] MEDS: ketorolac 30 mg/mL INJ 15 MG IVP ×2 (00:01→08:30)
[2024-08-25 01:10] VITALS: BP 101/62; PULSE 93; RESP 17; TEMP 36.8; O2SAT 93
[2024-08-25 05:03] VITALS: BP 104/62; PULSE 93; RESP 18; TEMP 36.6; O2SAT 93
[2024-08-25] MEDS: levothyroxine 50 mcg Tablet PO (05:17)
[2024-08-25 05:38] LABS: Basophils % 0.3 %; Eosinophils # 0.1 10^3/uL (0.0-0.8); Eosinophils % 1.1 %; Lymphocytes # 1.5 10^3/uL (0.8-4.8); Lymphocytes % 13.1 %; Mean Corpuscular HGB Conc 32.1 g/dL (30-55); Mean Corpuscular Hemoglobin 29.2 pg (27-33); Mean Corpuscular Volume 91.1 fl (85-98); Mean Platelet Volume 11.1 fL (7.4-10.4); Monocytes # 1.1 10^3/uL (0.2-0.9); Monocytes % 8.9 %; Neutrophils # 8.81 10^3/uL (1.8-7.7); Nucleated Red Blood Cells % 0 %; Platelet Count 277 10^3/cmm (157-399); Red Blood Count 4.28 10^6/uL (3.85-5.65); Red Cell Distribution Width 12.8 % (12.1-15.1); White Blood Count 11.75 10^3/uL (3.29-11.43)
[2024-08-25 05:56] LABS: Alanine Aminotransferase 31 U/L (0-33); Albumin Level 3.6 g/dL (3.5-5.2); Alkaline Phosphatase 176 U/L (35-105); Anion Gap 16.2 (5-19); Aspartate Amino Transferase 32 U/L (0-32); Blood Urea Nitrogen 18 mg/dL (8-23); Calcium 9.8 mg/dL (8.5-10.5); Carbon Dioxide 22 mmol/L (22-29); Chloride 104 mmol/L (98-107); Globulin 2.4 g/dL (1.3-4.6); Glomerular Filtration Rate 99.4 mL/min (90-130); Glucose 101 mg/dL (65-115); Magnesium 2.1 mg/dL (1.7-2.3); Osmolality Calculated 288 mOsm/kg (285-295); Phosphorus 3.8 mg/dL (2.5-4.5); Potassium 4.2 mmol/L (3.5-5.1); Sodium 138 mmol/L (136-145); Total Bilirubin 0.4 mg/dL (0.15-1.2)
[2024-08-25 07:41] VITALS: BP 137/81; PULSE 83; RESP 16; TEMP 36.6; O2SAT 93
--- NOTE | 2024-08-25 08:11 | PM.DCS ---
Discharge Providers Date of Admission: 08/17/24 18:53 Date of Discharge: August 25, 2024 Attending Provider at Admission: Milana Jimenez MD Attending Provider at Discharge: Tomi Omalley MD Primary Care Provider: Sunshine Dooley APN Diagnoses at Discharge Discharge Diagnosis (1) Altered mental status: Status: Acute (2) Right sided weakness: Status: Acute (3) Rhabdomyolysis: Status: Acute (4) Dehydration: Status: Acute (5) Hypernatremia: Status: Acute (6) Lumbar stenosis: Status: Acute (7) L4 vertebral fracture: Status: Acute Qualifiers: Encounter type: initial encounter Fracture morphology: wedge compression Fracture type: closed Qualified Code(s): S32.040A - Wedge compression fracture of fourth lumbar vertebra, initial encounter for closed fracture (8) Rib fracture: Status: Acute (9) Pulmonary embolism: Status: Acute (10) Chest pain: Status: Acute Reason for Visit Reason for Visit: fall Hospital Course Hospital Course This is a 69-year-old female with hypertension, hyperlipidemia, who presents [facility] due to being found down in her home, altered mental status Patient had a prolonged hospitalization, please look at prior progress notes for further detail For patient's altered mental status, patient had postoperative confusion, likely anesthetic effect, with hallucinations and paranoid delusions. 24 hour after her surgical procedure, she is alert oriented x 4, following all commands, denies any headache, no blurry vision, no nausea, no vomiting, no abdominal pain, no chest pain, no shortness of breath, is ambulatory. On admission patient had altered mental status requiring extensive workup, including CT head CTA head and neck with no acute findings, underwent lumbar puncture with no acute findings, blood cultures so far no growth, LP cultures so far no growth, did receive a trial of acyclovir for 48 hours, TSH within normal limits, ammonia levels within normal limits, TB quant to Farren gold within normal limits, respiratory viral panel within normal limits, echocardiogram within normal limits. CT angiogram of the chest minimal nonspecific dependent consolidation in the lung bases which could represent infiltrate or atelectasis. Potentially pneumonia could be playing a role, she was managed with broad-spectrum antibiotic therapy. There was also concern for UTI she was managed on broad-spectrum antibiotic therapy. So far patient's cultures are within normal limits, remains afebrile, HSV testing within normal limits. There was also concerns for possible CVA/TIA as an etiology, given, slurred speech, aphasia, right lower extremity weakness. On discharge she is alert oriented x 4, following all commands, no slurred speech, no aphasia, no word finding difficulty I cannot discern any focal weakness, nonetheless she was discharged on aspirin, statin, For patient's rib fractures, medically managed, For patient's vertebral body fracture, acute, with 30% loss of vertebral height, with concerns for right lower extremity weakness, surgical intervention was delayed given patient's findings of acute pulmonary embolism, nonetheless she had surgical invention 08/24/2024, was monitored postoperatively for 24 hours due to postoperative confusion, she will be discharged with close follow-up with primary care provider as outpatient. Follow-up with Dr. Kaur as outpatient. On discharge I cannot discern any significant right lower extremity weakness or any focal weakness For patient's transaminitis, HIDA scan was within normal limits Patient was found to have 1. Small filling defect within a posterior segmental branch of the right upper lobe pulmonary artery concerning for small pulmonary embolism. No additional pulmonary emboli are seen. No evidence of right heart strain. - She was managed on a heparin drip - She has remained on room air - Anticoagulant therapy has been held due to patient's kyphoplasty as above - Will resume Eliquis tonight at 6 PM, after detailed discussion with Dr. Kaur - I had a detailed discussion with patient about the risks and benefits of holding anticoagulant therapy - There is on the 1 hand the risk of bleeding into her surgical site, morbidity mortality and mortality associated - But on the other hand there is a risk worsening of her pulmonary embolism, and morbidity of mortality associated - Nonetheless she has had a small filling defect within the posterior segmental branch of the right upper lobe pulmonary artery, she remains on room air, clinically denies any chest pain or shortness of breath - After discussing the risk of benefits, she voiced understanding, all questions answered, shared decision making, agreed to proceed with resuming Eliquis tonight at 6 PM Physical Exam Const: COMMON NORMALS: no acute distress and patient oriented x3 Resp: COMMON NORMALS: normal respiratory effort, No retractions, No use of accessory muscles and clear to auscultation bilaterally AUSCULTATION: clear to auscultation bilaterally Cardio: COMMON NORMALS: regular rate, regular rhythm, S1 normal heart sound present and S2 normal heart sound present RATE: regular rate RHYTHM: regular rhythm HEART SOUNDS: S1 normal heart sound present and S2 normal heart sound present GI: COMMON NORMALS: Normal to inspection, nondistended, normoactive bowel sounds present and non-tender Extremity: COMMON NORMALS: no pedal edema Neuro: COMMON NORMALS: patient oriented x3 Psych: COMMON NORMALS: mental status grossly normal Discharge Data Studies Completed and Pending Completed Studies During Hospitalization Category Date Time Status CT abdomen pelvis w con* [id number] Routine Cat Scan 08/18/24 15:[address] head wo con* [id number] Stat Cat Scan 08/17/24 17:31 Completed CTA PE [CT angio chest PE protcl [id number]] Routine Cat Scan 08/21/24 14:44 Completed CTA head neck [CT angio headneck* [id number]/[id number]] Stat Cat Scan 08/17/24 17:31 Completed FL guided lumbarpunc dx* [id number] Routine Exams 08/19/24 12:24 Completed XR lumbar spine 2-3V* [id number] Routine Exams 08/24/24 12:13 Completed XR pelvis min 3V [id number] Stat Exams 08/17/24 14:14 Completed MR lumbar spine wo/w con [id number] Routine MRI 08/18/24 10:06 Completed NM hepatobiliary w phar* [id number] Routine Nuc Med 08/19/24 10:53 [place] [id number] Routine Ultrasound 08/22/24 17:01 Completed CV. echo complete* [id number] Routine Ultrasound 08/22/24 14:45 Completed US liver [id number] Routine Ultrasound 08/17/24 17:31 Completed Pending at discharge Category Date Time Status AFB [Mycobacteria, Culture w/Fluor] Routine Lab 08/18/24 12:25 Results Bartonella Species AB(IgG,IgM) Routine Lab 08/18/24 14:20 Results Complete Blood Count w/Auto AM LABS Lab 08/26/24 04:00 Ordered Comprehensive Metabolic Panel AM LABS Lab 08/26/24 04:00 Ordered Francisella tularensis IgM/IgG AM LABS Lab 08/19/24 04:51 Received Histoplasma Quantitative AG Routine Lab 08/18/24 12:26 Ordered Magnesium AM LABS Lab 08/26/24 04:00 Ordered Miscellaneous Test Routine Lab 08/18/24 12:28 Received Phosphorus AM LABS Lab 08/26/24 04:00 Ordered Tick Panel Routine Lab 08/17/24 18:07 Results Radiology Impressions Pelvis X-Ray 08/17/24 14:14 IMPRESSION: 1. No acute traumatic finding in the pelvis. Head CT 08/17/24 17:31 IMPRESSION: No CT evidence of acute intracranial hemorrhage, mass or acute infarction. ASSESSMENT: ASPECTS ([place] Stroke Program Early CT Score) is 10. ADDENDUM: 08/17/24 5129 THIS REPORT CONTAINS FINDINGS THAT MAY BE CRITICAL TO PATIENT CARE. The findings were verbally communicated via telephone conference with Dr. Rodriguez at 6:54 PM CDT on 08/17/2024. The findings were acknowledged and understood. Head/Neck CTA 08/17/24 17:31 IMPRESSION: No large vessel stenosis or occlusion. IMPRESSION: No carotid stenosis. 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 REFERENCES: NASCET CRITERIA. The degree of stenosis in the cervical segment of the internal carotid artery is based on NASCET criteria. Normal is no stenosis. Mild is less than 50% stenosis. Moderate is 50-69% stenosis. Severe is 70% to 99% stenosis. Total occlusion is no detectable patent lumen. Liver Ultrasound 08/17/24 17:31 IMPRESSION: Unremarkable duplex of the portal vein. IMPRESSION: 1. Cholelithiasis with positive sonographic Estevez's sign, concerning for acute cholecystitis. 2. Possible right renal mass measuring 3.5 cm. Recommend correlation with nonemergent contrast-enhanced multiphase CT. 3. Diffuse hepatic steatosis. Lumbar Spine MRI 08/18/24 10:06 IMPRESSION: 1. Acute compression fracture L4 with mild retropulsion and approximately 30% loss of vertebral body height. 2. Severe degenerative spinal stenosis L3-L4 and L4-L5 with constriction of the thecal sac. Abdomen/Pelvis CT 08/18/24 15:54 IMPRESSION: 1. Stercoral proctitis. Mild fecal stasis. 2. Cholelithiasis. 3. Additional chronic findings as detailed. Hepatobiliary Scan Nuclear Medicine 08/19/24 10:53 IMPRESSION: 1. Normal HIDA scan. 2. Normal gallbladder ejection fraction. 3. No cystic or common bile duct obstruction. Lumbar Puncture Fluoroscopy 08/19/24 12:24 IMPRESSION: Fluoroscopically guided lumbar puncture. No immediate complications Flow stopped after 7 to 8 cc of clear CSF was obtained Chest CTA 08/21/24 14:44 IMPRESSION: 1. Small filling defect within a posterior segmental branch of the right upper lobe pulmonary artery concerning for small pulmonary embolism. No additional pulmonary emboli are seen. No evidence of right heart strain. 2. Small bilateral pleural effusions and minimal nonspecific dependent consolidation in the lung bases which could represent infiltrate or atelectasis. 3. Nondisplaced fractures suggested at the left anterior 5th and 6th ribs. No pneumothorax. 4. Other incidental and/or chronic findings as detailed above. ADDENDUM: 08/21/24 9521 Addendum: There is also cortical contour abnormality suggesting nondisplaced fractures the anterior right 5th-7th ribs at the costochondral junction. THIS REPORT CONTAINS FINDINGS THAT MAY BE CRITICAL TO PATIENT CARE. The findings were verbally communicated by me via telephone conference to MILANA JIMENEZ at 4:49 PM CDT on 08/21/2024. The findings were acknowledged and understood. C-Arm Fluoroscopy 08/24/24 12:12 Impression: Lumbar kyphoplasty Lumbar Spine X-Ray 08/24/24 12:13 Impression: Lumbar decompression. Laboratory Results WBC 11.75 10^3/uL (3.29-11.43) H 08/25/24 05:21 RBC 4.28 10^6/uL (3.85-5.65) 08/25/24 05:21 Hgb 12.50 g/dL (11.27-16.99) 08/25/24 05:21 Hct 39.0 % (36-47) 08/25/24 05:21 MCV 91.1 fl (85-98) 08/25/24 05:21 MCH 29.2 pg (27-33) 08/25/24 05:21 MCHC 32.1 g/dL (30-55) 08/25/24 05:21 RDW 12.8 % (12.1-15.1) 08/25/24 05:21 Plt Count 277 10^3/cmm (157-399) 08/25/24 05:21 MPV 11.1 fL (7.4-10.4) H 08/25/24 05:21 Neut % (Auto) 75.0 % 08/25/24 05:21 Lymph % (Auto) 13.1 % 08/25/24 05:21 Charles % (Auto) 8.9 % 08/25/24 05:21 Eos % (Auto) 1.1 % 08/25/24 05:21 Baso % (Auto) 0.3 % 08/25/24 05:21 Neut # (Auto) 8.81 10^3/uL (1.8-7.7) H 08/25/24 05:21 Lymph # (Auto) 1.5 10^3/uL (0.8-4.8) 08/25/24 05:21 Charles # (Auto) 1.1 10^3/uL (0.2-0.9) H 08/25/24 05:21 Eos # (Auto) 0.1 10^3/uL (0.0-0.8) 08/25/24 05:21 Baso # (Auto) 0.0 10^3/uL (0.0-0.1) 08/25/24 05:21 Nucleated RBC % (auto) 0 % 08/25/24 05:21 Nucleated RBCs # 0.0 /100WBC 08/25/24 05:21 APTT 70.9 SECONDS (23.9-36.7) H 08/23/24 08:47 Sodium 138 mmol/L (136-145) 08/25/24 05:21 Potassium 4.2 mmol/L (3.5-5.1) 08/25/24 05:21 Chloride 104 mmol/L (98-107) 08/25/24 05:21 Carbon Dioxide 22 mmol/L (22-29) 08/25/24 05:21 Anion Gap 16.2 (5-19) 08/25/24 05:21 BUN 18 mg/dL (8-23) 08/25/24 05:21 Creatinine 0.6 mg/dL (0.5-0.9) 08/25/24 05:21 GFR Calculation 99.4 mL/min (90-130) 08/25/24 05:21 Glucose 101 mg/dL (65-115) 08/25/24 05:21 Calculated Osmolality 288 mOsm/kg (285-295) 08/25/24 05:21 Lactic Acid 1.0 mmol/L (0.5-2.2) 08/17/24 18:07 Calcium 9.8 mg/dL (8.5-10.5) 08/25/24 05:21 Phosphorus 3.8 mg/dL (2.5-4.5) 08/25/24 05:21 Magnesium 2.1 mg/dL (1.7-2.3) 08/25/24 05:21 Total Bilirubin 0.4 mg/dL (0.15-1.2) 08/25/24 05:21 AST 32 U/L (0-32) 08/25/24 05:21 ALT 31 U/L (0-33) 08/25/24 05:21 Alkaline Phosphatase 176 U/L (35-105) H 08/25/24 05:21 Ammonia 23 umol/L (11-51) 08/17/24 18:25 Creatine Kinase 811 U/L (26-192) H* 08/17/24 15:10 Troponin T Baseline 10 ng/L (0-10) 08/21/24 15:21 Troponin T 120 Minute 11.21 ng/L (0-10) H 08/21/24 17:11 Delta Troponin T 1.21 ABS# (0-10) 08/21/24 17:11 Troponin T Hi Sens 6Hr 10.53 ng/L (0-10) H 08/21/24 21:13 Troponin T Hi Sens 6Hr Delta 0.53 ng/L (0-12) 08/21/24 21:13 Total Protein 6.0 g/dL (6.6-8.7) L 08/25/24 05:21 Albumin 3.6 g/dL (3.5-5.2) 08/25/24 05:21 Globulin 2.4 g/dL (1.3-4.6) 08/25/24 05:21 TSH 2.29 uIU/mL (0.27-4.20) 08/17/24 15:10 Urine Color Dark yellow (Yellow) A 08/17/24 15:46 Urine Appearance Clear (CLEAR) 08/17/24 15:46 Urine pH 6.0 (5-7) 08/17/24 15:46 Ur Specific Se[place]our 1.033 (1.005-1.030) H 08/17/24 15:46 Urine Protein 1+ (Negative) A 08/17/24 15:46 Urine Glucose (UA) Negative (Normal) 08/17/24 15:46 Urine Ketones 2+ (Negative) H 08/17/24 15:46 Urine Blood Negative (Negative) 08/17/24 15:46 Urine Nitrate Negative (Negative) 08/17/24 15:46 Urine Bilirubin Negative (Negative) 08/17/24 15:46 Urine Urobilinogen 1.0 mg/dL (Negative) 08/17/24 15:46 Ur Leukocyte Esterase Trace (Negative) A 08/17/24 15:46 Urine RBC 0-2 /hpf (0-2) 08/17/24 15:46 Urine WBC 0-5 /hpf (0-5) 08/17/24 15:46 Ur Squamous Epith Cells 0-5 /hpf (0-5) 08/17/24 15:46 Amorphous Sediment Not Reportable 08/17/24 15:46 Urine Bacteria None seen /hpf (NONE) 08/17/24 15:46 Hyaline Casts 1.21 /lpf 08/17/24 15:46 CSF Appearance Clear (CLEAR) 08/19/24 13:40 CSF Color Colorless (COLORLESS) 08/19/24 13:40 CSF WBC 6 /uL (0-5) H 08/19/24 13:40 CSF RBC 0 10^3/uL (0-0) 08/19/24 13:40 CSF Mononuclear # Auto 0.006 10^3/uL (50-90) L 08/19/24 13:40 CSF Mononuclear WBCs % 100 % (50-90) H 08/19/24 13:40 CSF Polynuclear WBCs # 0.000 10^3/uL (0-10) 08/19/24 13:40 CSF Polynuclear WBCs % 0 % (0-10) 08/19/24 13:40 CSF Diff Comment Yes 08/19/24 13:40 CSF Glucose 63 mg/dL (40-70) 08/19/24 13:40 CSF Total Protein 106 mg/dL (15-45) H 08/19/24 13:40 CSF Lyme IgG (Immblot) No bands detected 08/19/24 13:40 CSF Lyme IgM (Immblot) No bands detected 08/19/24 13:40 Urine Opiates Screen Negative ng/mL (Negative) 08/17/24 15:40 Ur Barbiturates Screen Negative ng/mL (Negative) 08/17/24 15:40 Ur Phencyclidine Scrn Negative ng/mL (Negative) 08/17/24 15:40 Ur Amphetamines Screen Negative ng/mL (Negative) 08/17/24 15:40 U Benzodiazepines Scrn Negative ng/mL (Negative) 08/17/24 15:40 Urine Cocaine Screen Negative ng/mL (Negative) 08/17/24 15:40 U Marijuana (THC) Screen Positive ng/mL (Negative) H 08/17/24 15:40 Ethyl Alcohol < 10 mg/dL (0-10) 08/17/24 15:10 MATEO Nuclear Membr Pat A 08/19/24 04:51 MATEO IFA Animal Tis Ttr 1:80 titer H 08/19/24 04:51 MATEO IFA Animal Tis Res Positive (NEGATIVE) A 08/19/24 04:51 GABRIELA-1 Antibody <1.0 neg AI (<1.0 NEG) 08/19/24 04:51 SS-A Antibody <1.0 neg AI (<1.0 NEG) 08/19/24 04:51 SS-B Antibody <1.0 neg AI (<1.0 NEG) 08/19/24 04:51 Sm (Beltrán) Antibody <1.0 neg AI (<1.0 NEG) 08/19/24 04:51 DRAWER UPFITTER Antibody <1.0 neg AI (<1.0 NEG) 08/19/24 04:51 Scl-70 Antibody <1.0 neg AI (<1.0 NEG) 08/19/24 04:51 Anti-ds DNA IgG (Crith) Negative (NEGATIVE) 08/19/24 04:51 Centromere B Antibody <1.0 neg AI (<1.0 NEG) 08/19/24 04:51 Thyroid Peroxidase Ab 49 IU/mL (<9) H 08/19/24 04:51 Complement C3c 178 mg/dL (83-193) 08/19/24 04:51 Complement C4c 30 mg/dL (15-57) 08/19/24 04:51 CH50 Classical Pathway 60 U/mL (31-60) 08/19/24 04:51 Adenovirus (PCR) Not detected (NOT DETECT) 08/19/24 17:45 Bartonella henselae IgG Negative 08/18/24 14:20 Bartonella henselae IgM Negative 08/18/24 14:20 Bartonella guevara IgG Negative 08/18/24 14:20 Bartonella guevara IgM Negative 08/18/24 14:20 Lyme Ab (Western Blot) <0.90 index 08/17/24 18:07 Lyme IgG Bands Present Not Reportable 08/19/24 13:40 Lyme IgM Bands Present Not Reportable 08/19/24 13:40 C. pneumoniae DNA (PCR) Not detected (NOT DETECT) 08/19/24 17:45 Coronavirus 229E (PCR) Not detected (NOT DETECT) 08/19/24 17:45 E. chaffeensis IgG Ab <1:64 08/17/24 18:07 E. chaffeensis IgM Ab <1:20 08/17/24 18:07 E. chaffeensis Interp See note 08/17/24 18:07 E. chaffeensis Comment Not Reportable 08/17/24 18:07 Hepatitis A IgM Ab Non-reactive (Nonreactive) 08/17/24 15:10 Hep Bs Antigen Non-reactive (Nonreactive) 08/17/24 15:10 Hep Bs Antibody 40.7 (11.5-1000) 08/17/24 15:10 Hep B Core Total Ab Non-reactive (Nonreactive) 08/17/24 15:10 Hepatitis C Antibody Non-reactive (Nonreactive) 08/17/24 15:10 Herpes Simplex Source Results below 08/19/24 13:40 Histo Mycel H Protein Negative 08/18/24 14:20 Histo Mycel M Protein Negative 08/18/24 14:20 Human Metapneumovir PCR Not detected (NOT DETECT) 08/19/24 17:45 Influenza A (H1) PCR Not detected (NOT DETECT) 08/19/24 17:45 Influ A (H1/09) PCR Not detected (NOT DETECT) 08/19/24 17:45 Influenza A (H3) PCR Not detected (NOT DETECT) 08/19/24 17:45 Influenza Type A (PCR) Not detected (NOT DETECT) 08/19/24 17:45 Influenza Type B (PCR) Not detected (NOT DETECT) 08/19/24 17:45 M. pneumoniae (PCR) Not detected (NOT DETECT) 08/19/24 17:45 Parainfluenza 1 (PCR) Not detected (NOT DETECT) 08/19/24 17:45 Parainfluenza 2 (PCR) Not detected (NOT DETECT) 08/19/24 17:45 Parainfluenza 3 (PCR) Not detected (NOT DETECT) 08/19/24 17:45 Parainfluenza 4 (PCR) Not detected (NOT DETECT) 08/19/24 17:45 RSV Type A (PCR) Not detected (NOT DETECT) 08/19/24 17:45 RSV Type B (PCR) Not detected (NOT DETECT) 08/19/24 17:45 Entero/Rhino (PCR) Not detected (NOT DETECT) 08/19/24 17:45 SARS-CoV-2 (PCR) Not detected (NOT DETECT) 08/19/24 17:45 SARS-CoV-2 Ag (Rapid) Negative (Negative) 08/24/24 12:25 TB (QFT) Gold In Tube Negative (NEGATIVE) 08/18/24 14:20 TB Test (QFT) Nil 0.01 IU/mL 08/18/24 14:20 TB Test (QFT) Mitogen 9.93 IU/mL 08/18/24 14:20 TB Test Mitogen - Nil 0.01 IU/mL 08/18/24 14:20 TB Test TB -Nil 0.00 IU/mL 08/18/24 14:20 HSV 1 DNA Not detected (Not Detected) 08/19/24 13:40 HSV 2 DNA Not detected (Not Detected) 08/19/24 13:40 Vitals Last Vital Signs Temp 97.8 F 08/25/24 07:41 Pulse 83 08/25/24 07:41 Resp 16 08/25/24 07:41 BP 137/81 08/25/24 07:41 Pulse Ox 93 08/25/24 07:41 O2 Del Method Room Air 08/25/24 07:41 O2 Flow Rate 6 08/24/24 09:46 Discharge Plan Discharge Patient Disposition: Home Condition: Stable Prescriptions: New amlodipine 5 mg Tablet 5 mg PO DAILY 30 Days Qty: 30 0RF docusate sodium 100 mg Capsule 100 mg PO BID 30 Days Qty: 60 0RF amoxicillin-pot clavulanate 875-125 mg tablet 1 tab PO BID 5 Days Qty: 10 0RF Eliquis DVT-PE Treat 30D Start 5 mg (74 tabs) tablets,dose pack See Rx Instructions .ROUTE .COMPLEX Qty: 74 0RF Rx Instructions: start at 6pm 08/25/2024 10mg(2tabs) bid for 7 days, followed by 5mg(1tab) bid aspirin 81 mg capsule 81 mg PO DAILY 30 Days Qty: 30 0RF Continued cyclobenzaprine 10 mg tablet 10 mg PO BID PRN (Reason: Spasms) triamcinolone acetonide 0.1 % cream 1 applic TOPICAL BID PRN (Reason: Skin Irritation) levothyroxine 50 mcg Tablet 50 mcg PO QAM fluoxetine [Prozac] 20 mg Capsule 20 mg PO DAILY rosuvastatin 20 mg Tablet 20 mg PO DAILY Changed metoprolol succinate 25 mg tablet extended release 24 hr 50 mg PO DAILY 30 Days Qty: 60 0RF Discontinued acetaminophen-codeine 300-30 mg tablet 1 tab PO Q8H PRN (Reason: Pain) hydrochlorothiazide 25 mg tablet 25 mg PO QAM Discharge Orders: Discharge Order (Routine); Ordered 08/25/24 Ordered By: Tomi Omalley Referrals: Benito Kaur DO [Physician, Orthopedics] - 09/08/24 9:00 am Referral Note: Discharge Diet: Cardiac Discharge Activity: Resume usual activity Patient Instructions: Amoxicillin/Clavulanate Potassium (By mouth), Laxative, Stool Softeners (By mouth) (Doculax, Colace, Colace Clear, DSS), Amlodipine (By mouth), Apixaban (By mouth), Acute Wound Care (DC), Kyphoplasty (DC), Opioid Safety, Post Anesthesia Care Activity Restrictions/Additional Instructions: -monitor for bloody or black stools, if so please go to emergency room - Repeat CBC in 1 week Discharge Attestations Time Spent in Discharge Care*: greater than 30 min Quality Metrics Clinical Quality Measures [ No reported AMI, CVA or VTE this stay] Coding Level of Care Code 53850 Total time (in minutes) for Discharge: 45 Diagnoses Altered mental status R41.82 Right sided weakness R53.1 Rhabdomyolysis M62.82 Dehydration E86.0 Hypernatremia E87.0 Lumbar stenosis M48.061 Closed wedge compression fracture of L4 vertebra, initial encounter S32.040A Encounter type: initial encounter Fracture morphology: wedge compression Fracture type: closed Rib fracture S22.39XA Pulmonary embolism I26.99 Chest pain R07.9
[2024-08-25] MEDS: azithromycin 250 mg Tablet 500 MG PO (08:29)
[2024-08-25] MEDS: docusate sodium 100 mg Capsule PO (08:29)
[2024-08-25] MEDS: amlodipine 5 mg Tablet PO (08:29)
[2024-08-25] MEDS: lactulose oral liq 20 gm/30 mL UDC 10 GM PO (08:29)
[2024-08-25] MEDS: metroNIDAZOLE 500 MG Tablet PO (08:29)
[2024-08-25] MEDS: metoprolol succinate ER (24 HR) 25 mg Tablet 50 MG PO (08:29)
[2024-08-25] MEDS: lidocaine 5% Patch 1 PATCH TOPICAL (08:36)
--- NOTE | 2024-08-25 10:02 | PC.NURSE ---
This nurse called report to JOSE Gilmore at [facility] at 1000. 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
[2024-08-25 10:34] VITALS: BP 130/80; PULSE 78; O2SAT 97
[2024-08-25 22:19] LABS: F.tularensis IgG AB Serum Negative (Negative); F.tularensis IgM AB Serum Negative (Negative)
[2024-08-30 18:44] LABS: RMSF IGG NOT DETECTED; RMSF IGM NOT DETECTED
== END 2024-08-25 10:35 | disposition skilled nursing facility (03) | DRG 515 ==
LOC: ER 15:15 → MEDSURG 18:54
PROVIDERS: Internal Medicine; Orthopaedic Surgery; Admitting Provider Student in an Organized Health Care Education/Training Program; Emergency Provider Emergency Medicine; PCP Nurse Practitioner Family; Visit Provider Family Medicine
PROC: 01NB0ZZ Release Lumbar Nerve, Open Approach (ICD-10-PCS; principal; 2024-08-24 07:35)
PROC: 01NB0ZZ Release Lumbar Nerve, Open Approach (ICD-10-PCS; CPT 63005; 2024-08-24 07:35)
DX: S32.040A Wedge compression fracture of fourth lumbar vertebra, initial encounter for closed fracture (principal); I26.99 Other pulmonary embolism without acute cor pulmonale; M62.82 Rhabdomyolysis; S22.32XA Fracture of one rib, left side, initial encounter for closed fracture; G81.91 Hemiplegia, unspecified affecting right dominant side; E87.0 Hyperosmolality and hypernatremia; M80.08XA Age-related osteoporosis with current pathological fracture, vertebra(e), initial encounter for fracture; E86.0 Dehydration; M48.061 Spinal stenosis, lumbar region without neurogenic claudication; W19.XXXA Unspecified fall, initial encounter; K52.89 Other specified noninfective gastroenteritis and colitis
CPT/HCPCS: 12345; 36415; 62328; 70450; 70496; 70498; 71275; 72100; 72158; 72190; 74177; 76000; 76705; 78227; 80053; 80306; 80307; 80503; 81001; 82140; 82550; 82945; 83605; 83735; 84100; 84157; 84443; 84484; 85025; 85730; 86160; 86162; 86235; 86255; 86376; 86403; 86480; 86611; 86617; 86618; 86666; 86668; 86698; 86705; 86706; 86709; 86757; 86803; 87015; 87040; 87070; 87075; 87116; 87205; 87206; 87327; 87340; 87426; 87486; 87530; 87581; 87633; 87801; 89050; 93005; 93306; 93970; 96361; 96372; 96374; 97116; 97161; 97167; 97530; 97535; 99285; 99291; 99292; A9537; J0133; J0360; J0690; J0696; J1100; J1644; J1650; J1885; J2371; J2405; J2543; J2704; J3010; J3480; J3490; J7030; J7050; J9999; Q0144

== ENCOUNTER → 2024-09-08 08:47 | Outpatient (BNVA) | payer MEDICARE, OTHER, SELFPAY | PROVIDERS: PCP Nurse Practitioner Family; Visit Provider Orthopaedic Surgery | DX: Z98.890 Other specified postprocedural states (principal) | CPT/HCPCS: 99024 ==

== ENCOUNTER → 2024-10-06 08:53 | Outpatient (BNVA) | payer MEDICARE, OTHER, SELFPAY | PROVIDERS: PCP Nurse Practitioner Family; Visit Provider Orthopaedic Surgery | DX: Z98.890 Other specified postprocedural states (principal) | CPT/HCPCS: 72100; 99024 ==